=== PATIENT | female | born 1985 | race Caucasian/White ===

== ENCOUNTER 2023-05-26 10:34 | Emergency (ER) | payer OTHER, SELFPAY ==
[2023-05-26 10:43] VITALS: BP 141/86; PULSE 91; RESP 16; TEMP 36.8; O2SAT 97; BMI 35.9
[2023-05-26 10:56] VITALS: BP 141/86; PULSE 92; RESP 18; O2SAT 98
--- NOTE | 2023-05-26 10:59 | ED_ITS ---
HPI - Recheck/Abnormal Lab/Rx <Paige Moss PA-C - Last Filed: 05/26/23 11:59> General Chief Complaint: Recheck/Abnormal Lab/Rx Stated Complaint: heavy period, possible lt leg blood clot Time Seen by Provider: 05/26/23 10:51 Mode of arrival: Family Vehicle History of Present Illness HPI narrative: A 38-year-old woman with a history of factor 5 Leiden, previous DVTs of left lower extremity who presents with concern for some mild dizziness and heavy bleeding associated with mild cramping after her period started yesterday in the setting of beginning rivaroxaban on Saturday, 4 days ago. Patient states that she had been having increasing left calf swelling and some sharp calf pains shooting up her leg so she went in to [facility] in [place] for evaluation of DVT, she brings ultrasound report with her today which shows no evidence of new DVT, she did state that they told her there was some residual old DVT but nothing new. As a precaution she was placed on rivaroxaban she says she is taking 15 mg twice a day. Yesterday she started having her period and had very heavy bleeding with clots she states that she went through about 20 pads over the afternoon and when she tried to use a tampon it immediately filled. She states as of this morning her bleeding has lightened up quite a bit but on the way here she felt a gushing sensation. She has not changed her pad since arrival to the ER. Patient states she has previously been on Eliquis as prophylaxis for a car trip across the [place] and when she was originally diagnosed with DVTs she was on warfarin and therapy was monitored. She states she has never had a problem with heavy periods while being on a blood thinner in the past. When she was on Eliquis it was for short period and she did not have a menstrual period during the time she was on it. Patient states her dizziness is mild and is present even at rest she 1st noticed it last night. Patient states she took a home test before starting the medication which was negative. She endorses that her left calf is chronically larger than her right calf. She is not on control. Her original DVT diagnosis was in 2010, she states she had 1 in her calf and 1 in her upper leg at the same time, this was provoked by being on control it was after this diagnosis that she discovered that she had factor 5 Leiden. She denies any other symptoms or complaints including syncope, persistent left calf pain, nausea, vomiting, diarrhea, abdominal pain, fevers, chills or other. Related Data Allergies Allergy/AdvReac Type Severity Reaction Status Date / Time ampicillin Allergy Verified 05/26/23 10:47 Review of Systems <Paige Moss PA-C - Last Filed: 05/26/23 11:59> Review of Systems Narrative: See HPI Patient History <Paige Moss PA-C - Last Filed: 05/26/23 11:59> Social History Smoking Status: Never smoker Smoking Status: Never smoker alcohol intake frequency: a few times a month Substance Use Type: does not use Exam <Paige Moss PA-C - Last Filed: 05/26/23 11:59> Narrative Exam Narrative: GENERAL: [38] year old patient appears stated age. Overweight patient, in mild distress. HEAD: Atraumatic. Normocephalic. EYES: Pupils equal round and reactive. Extraocular motions intact. No scleral icterus. No injection or drainage. ENT: Nose without bleeding, purulent drainage. Airway patent. NECK: Trachea midline. CARDIOVASCULAR: Regular rate and rhythm without murmurs, gallops, or rubs. RESPIRATORY: Clear to auscultation. Breath sounds equal bilaterally. No wheezes, rales, or rhonchi. GASTROINTESTINAL: Abdomen soft, non-tender, nondistended, no CVA tenderness. EXTREMITIES: Left calf is visibly larger than the right calf, measured at 10 cm below the tibial tuberosity the right calf is 39 cm in circumference and the left calf is 44.5 cm in circumference. There is no tenderness with palpation, movement of the ankle or knee and there is no erythema or heat, pedal pulses dorsalis pedis equal bilaterally, skin color is normal tone for patient consistent in bilateral extremities. No edema or joint tenderness. BACK: Nontender without deformity or crepitance. No flank tenderness. NEURO: AOx3. SKIN: No rash or erythema of visible areas Initial Vital Signs Initial Vital Signs: Vital Signs Temperature 98.3 F 05/26/23 10:43 Pulse Rate 91 H 05/26/23 10:43 Respiratory Rate 16 05/26/23 10:43 Blood Pressure 141/86 H 05/26/23 10:43 Pulse Oximetry 97 05/26/23 10:43 Oxygen Delivery Method Room Air 05/26/23 10:43 <Todd Cagle DO - Last Filed: 05/26/23 12:35> Initial Vital Signs Initial Vital Signs: Vital Signs Temperature 98.3 F 05/26/23 10:43 Pulse Rate 91 H 05/26/23 10:43 Respiratory Rate 16 05/26/23 10:43 Blood Pressure 141/86 H 05/26/23 10:43 Pulse Oximetry 97 05/26/23 10:43 Oxygen Delivery Method Room Air 05/26/23 10:43 Course <Paige Moss PA-C - Last Filed: 05/26/23 11:59> Course Course Narrative: Did discuss this patient's case with attending physician Dr. Cagle including options for reducing dose versus continuing the same dose versus stopping the rivaroxaban given patient's recent symptoms. We are in agreement that given patient's H&H are fine today and she has not had persistent heavy bleeding this morning, given her history and recent symptoms of DVT despite negative ultrasound it does make sense to continue her on the medication and dose that she was initiated on (Rivaroxaban 15mg BID) if she is agreeable with this. 11:25 Did have a long conversation with the patient about options and her history, risk factors and her recent symptoms both of calf pain and swelling and of her heavy menstruall bleeding yesterday. After discussion patient is agreeable to continue with her current medication dose, and monitor for persistent/worsening symptoms. She does feel strongly that she would like to be on a blood thinner given her risk factors and history as well as her recent symptoms. 11:50 Orders Ordered: ED Orders 05/26/23 10:50 Complete Blood Count AUTO DIFF Stat Comprehensive Metabolic Panel Stat HCG Quantitative /Beta subunit Stat PTT Partial Thromboplastin Armando Stat Prothrombin Time INR Stat Type and Screen Stat 05/26/23 11:05 Urinalysis and Microscopic Stat Vital Signs Vital signs: Vital Signs - 8 hr 05/26/23 10:43 05/26/23 10:56 Temperature 98.3 F Pulse Rate 91 H 92 H Respiratory Rate 16 18 Blood Pressure 141/86 H 141/86 H Pulse Oximetry 97 98 Oxygen Delivery Method Room Air <Todd Cagle DO - Last Filed: 05/26/23 12:35> Orders Ordered: ED Orders 05/26/23 10:50 Complete Blood Count AUTO DIFF Stat Comprehensive Metabolic Panel Stat HCG Quantitative /Beta subunit Stat PTT Partial Thromboplastin Armando Stat Prothrombin Time INR Stat Type and Screen Stat 05/26/23 11:05 Urinalysis and Microscopic Stat Vital Signs Vital signs: Vital Signs - 8 hr 05/26/23 10:43 05/26/23 10:56 Temperature 98.3 F Pulse Rate 91 H 92 H Respiratory Rate 16 18 Blood Pressure 141/86 H 141/86 H Pulse Oximetry 97 98 Oxygen Delivery Method Room Air MDM - Recheck/Abnormal Lab/Rx <Paige Moss PA-C - Last Filed: 05/26/23 11:59> Differential Diagnosis Differential diagnosis: Likely other (menorrhagia, on anticoagulation, factor V leiden) Medical Records Attestation: I reviewed the patient's medical records. Lab Data Attestation: I reviewed the patient's lab results. 05/26/23 10:50 05/26/23 10:50 Labs: Lab Results 05/26/23 05/26/23 05/26/23 Range/Units 10:50 10:50 10:50 WBC (4.5-11.0) X10^3/uL RBC (4.0-5.2) X10^6/uL Hgb (12.0-16.0) g/dL Hct (36-46) % MCV (80-100) fL MCH (26-34) PG MCHC (30-36) % RDW (11.6-14.8) % Plt Count (150-400) X10^3/uL Neut % (Auto) (50-75) % Lymph % (Auto) (25-40) % Wharton % (Auto) (3-14) % Eos % (Auto) (2-4) % Baso % (Auto) (0-2) % Neut # (Auto) (2131-7626) /uL Lymph # (Auto) (6751-9927) /uL Wharton # (Auto) (0-900) /uL Eos # (Auto) (0-450) /uL Baso # (Auto) (0-100) /uL PT 18.0 H (10.1-12.7) SECONDS INR 1.6 H (0.9-1.3) APTT 35 (26-36) SECONDS Sodium 138 (137-145) mmol/L Potassium 4.0 (3.4-5.1) mmol/L Chloride 101 (98-107) mmol/L Carbon Dioxide 31 (22-32) mmol/L BUN 12 (7-17) mg/dL Creatinine 0.74 (0.52-1.04) mg/dL Estimated GFR > 60 (>60) mL/min BUN/Creatinine Ratio 16.2 (6-22) Glucose 96 (70-100) mg/dL Calcium 9.2 (8.4-10.2) mg/dL Total Bilirubin 1.2 (0.2-1.3) mg/dL AST 27 (14-36) IU/L ALT 30 (<35) IU/L Alkaline Phosphatase 65 (38-126) U/L Total Protein 7.8 (6.3-8.2) g/dL Albumin 4.5 (3.5-5.0) g/dL Globulin 3.3 (1.7-4.1) g/dL Albumin/Globulin Ratio 1.4 (1.0-2.8) HCG, Quant mIU/mL Urine Color Urine Appearance Urine pH (4.5-8.0) Ur Specific [place] (1.000-1.035) Urine Protein (Negative) Urine Glucose (UA) (Negative) g/dL Urine Ketones (NEGATIVE) Urine Occult Blood (Negative) Urine Nitrate (Negative) Urine Bilirubin (NEGATIVE) Urine Urobilinogen (0.2) E.U./dL Ur Leukocyte Esterase (NEGATIVE) Urine RBC (0-5/HPF) Urine WBC (0-5/HPF) Ur Squamous Epith Cells (0-5/HPF) Urine Bacteria (None) Ur Culture Indicated? Blood Type A Negative Antibody Screen Negative 05/26/23 05/26/23 05/26/23 Range/Units 10:50 10:50 11:05 WBC 5.7 (4.5-11.0) X10^3/uL RBC 4.45 (4.0-5.2) X10^6/uL Hgb 14.1 (12.0-16.0) g/dL Hct 40.8 (36-46) % MCV 91.8 (80-100) fL MCH 31.8 (26-34) PG MCHC 34.6 (30-36) % RDW 13.2 (11.6-14.8) % Plt Count 226 (150-400) X10^3/uL Neut % (Auto) 52.4 (50-75) % Lymph % (Auto) 36.8 (25-40) % Wharton % (Auto) 9.4 (3-14) % Eos % (Auto) 1.1 L (2-4) % Baso % (Auto) 0.3 (0-2) % Neut # (Auto) 3000 (7277-7733) /uL Lymph # (Auto) 2100 (2646-4096) /uL Wharton # (Auto) 500 (0-900) /uL Eos # (Auto) 100 (0-450) /uL Baso # (Auto) 0 (0-100) /uL PT (10.1-12.7) SECONDS INR (0.9-1.3) APTT (26-36) SECONDS Sodium (137-145) mmol/L Potassium (3.4-5.1) mmol/L Chloride (98-107) mmol/L Carbon Dioxide (22-32) mmol/L BUN (7-17) mg/dL Creatinine (0.52-1.04) mg/dL Estimated GFR (>60) mL/min BUN/Creatinine Ratio (6-22) Glucose (70-100) mg/dL Calcium (8.4-10.2) mg/dL Total Bilirubin (0.2-1.3) mg/dL AST (14-36) IU/L ALT (<35) IU/L Alkaline Phosphatase (38-126) U/L Total Protein (6.3-8.2) g/dL Albumin (3.5-5.0) g/dL Globulin (1.7-4.1) g/dL Albumin/Globulin Ratio (1.0-2.8) HCG, Quant < 2.4 mIU/mL Urine Color Yellow Urine Appearance Clear Urine pH 7.0 (4.5-8.0) Ur Specific [place] 1.010 (1.000-1.035) Urine Protein Negative (Negative) Urine Glucose (UA) Negative (Negative) g/dL Urine Ketones Negative (NEGATIVE) Urine Occult Blood 2+ H (Negative) Urine Nitrate Negative (Negative) Urine Bilirubin Negative (NEGATIVE) Urine Urobilinogen 0.2 (0.2) E.U./dL Ur Leukocyte Esterase Negative (NEGATIVE) Urine RBC 1-5/hpf (0-5/HPF) Urine WBC 0-1/hpf (0-5/HPF) Ur Squamous Epith Cells 1-5 /hpf (0-5/HPF) Urine Bacteria Few (2-10) H (None) Ur Culture Indicated? Cult not indicated Blood Type Antibody Screen Point of Care Testing Test Results Negative Urine Dip Bedside Urine Glucose Negative Bedside Urine Bilirubin - Negative Bedside Urine Ketone - Negative Urine Specific [place] 1.010 Bedside Urine Occult Blood +++ Bedside Urine pH 7.0 Bedside Urine Protein - Negative Bedside Urine Urobilinogen - Negative Bedside Urine Nitrite - Negative Bedside Urine Leukocytes - Negative Esterase MDM Narrative Medical decision making narrative: Is a slightly anxious appearing 38-year-old woman with a history of factor 5 Leiden than previous left lower extremity DVTs in 2010 with recent DVT symptoms and recent negative DVT ultrasound who presents with concern for heavy bleeding yesterday when her period began on time in the setting of starting rivaroxaban 3 days ago. Patient's vitals are not suggestive of hypovolemia due to blood loss, she is generally well-appearing the slightly anxious and worried, her labs returned unremarkable, she has H&H in the normal range hemoglobin 14.1 hematocrit 39.8. HCG is negative. She does have a INR of 1.6 and a PT of 18 consistent with being on rivaroxaban. Patient did also take aspirin until she began the rivaroxaban 3 days ago. Notably patient has not had persistent heavy menstrual bleeding this morning or last night that has been but did report s ignificant heavy bleeding yesterday. After discussion with attending physician repeat DVT ultrasound was not obtained as patient is already on anticoagulation had a negative DVT ultrasound 4 days ago and has not had persistent or worsening leg pain symptoms. Patient also has no exam findings or history suggestive of PE. Also after discussion with attending physician and involvement of the patie nt with shared decision-making plan to leave the patient on the rivaroxaban though she is on currently at 15 mg twice a day, she will follow-up with her primary care provider and have a discussion about when to drop this down to a lower dose and whether or not to consider chronic prophylactic therapy. Patient is counseled regarding return precautions, monitoring for new or worsening symptoms and understands when to call 911 or present to the emergency department. Return precautions provided, follow-up plan discussed, questions answered. <Todd Cagle, DO - Last Filed: 05/26/23 12:35> Lab Data Labs: Lab Results 05/26/23 05/26/23 05/26/23 Range/Units 10:50 10:50 10:50 WBC (4.5-11.0) X10^3/uL RBC (4.0-5.2) X10^6/uL Hgb (12.0-16.0) g/dL Hct (36-46) % MCV (80-100) fL MCH (26-34) PG MCHC (30-36) % RDW (11.6-14.8) % Plt Count (150-400) X10^3/uL Neut % (Auto) (50-75) % Lymph % (Auto) (25-40) % Wharton % (Auto) (3-14) % Eos % (Auto) (2-4) % Baso % (Auto) (0-2) % Neut # (Auto) (3623-8304) /uL Lymph # (Auto) (0119-6168) /uL Wharton # (Auto) (0-900) /uL Eos # (Auto) (0-450) /uL Baso # (Auto) (0-100) /uL PT 18.0 H (10.1-12.7) SECONDS INR 1.6 H (0.9-1.3) APTT 35 (26-36) SECONDS Sodium 138 (137-145) mmol/L Potassium 4.0 (3.4-5.1) mmol/L Chloride 101 (98-107) mmol/L Carbon Dioxide 31 (22-32) mmol/L BUN 12 (7-17) mg/dL Creatinine 0.74 (0.52-1.04) mg/dL Estimated GFR > 60 (>60) mL/min BUN/Creatinine Ratio 16.2 (6-22) Glucose 96 (70-100) mg/dL Calcium 9.2 (8.4-10.2) mg/dL Total Bilirubin 1.2 (0.2-1.3) mg/dL AST 27 (14-36) IU/L ALT 30 (<35) IU/L Alkaline Phosphatase 65 (38-126) U/L Total Protein 7.8 (6.3-8.2) g/dL Albumin 4.5 (3.5-5.0) g/dL Globulin 3.3 (1.7-4.1) g/dL Albumin/Globulin Ratio 1.4 (1.0-2.8) HCG, Quant mIU/mL Urine Color Urine Appearance Urine pH (4.5-8.0) Ur Specific [place] (1.000-1.035) Urine Protein (Negative) Urine Glucose (UA) (Negative) g/dL Urine Ketones (NEGATIVE) Urine Occult Blood (Negative) Urine Nitrate (Negative) Urine Bilirubin (NEGATIVE) Urine Urobilinogen (0.2) E.U./dL Ur Leukocyte Esterase (NEGATIVE) Urine RBC (0-5/HPF) Urine WBC (0-5/HPF) Ur Squamous Epith Cells (0-5/HPF) Urine Bacteria (None) Ur Culture Indicated? Blood Type A Negative Antibody Screen Negative 05/26/23 05/26/23 05/26/23 Range/Units 10:50 10:50 11:05 WBC 5.7 (4.5-11.0) X10^3/uL RBC 4.45 (4.0-5.2) X10^6/uL Hgb 14.1 (12.0-16.0) g/dL Hct 40.8 (36-46) % MCV 91.8 (80-100) fL MCH 31.8 (26-34) PG MCHC 34.6 (30-36) % RDW 13.2 (11.6-14.8) % Plt Count 226 (150-400) X10^3/uL Neut % (Auto) 52.4 (50-75) % Lymph % (Auto) 36.8 (25-40) % Wharton % (Auto) 9.4 (3-14) % Eos % (Auto) 1.1 L (2-4) % Baso % (Auto) 0.3 (0-2) % Neut # (Auto) 3000 (8711-3062) /uL Lymph # (Auto) 2100 (4620-5800) /uL [place]arton # (Auto) 500 (0-900) /uL Eos # (Auto) 100 (0-450) /uL Baso # (Auto) 0 (0-100) /uL PT (10.1-12.7) SECONDS INR (0.9-1.3) APTT (26-36) SECONDS Sodium (137-145) mmol/L Potassium (3.4-5.1) mmol/L Chloride (98-107) mmol/L Carbon Dioxide (22-32) mmol/L BUN (7-17) mg/dL Creatinine (0.52-1.04) mg/dL Estimated GFR (>60) mL/min BUN/Creatinine Ratio (6-22) Glucose (70-100) mg/dL Calcium (8.4-10.2) mg/dL Total Bilirubin (0.2-1.3) mg/dL AST (14-36) IU/L ALT (<35) IU/L Alkaline Phosphatase (38-126) U/L Total Protein (6.3-8.2) g/dL Albumin (3.5-5.0) g/dL Globulin (1.7-4.1) g/dL Albumin/Globulin Ratio (1.0-2.8) HCG, Quant < 2.4 mIU/mL Urine Color Yellow Urine Appearance Clear Urine pH 7.0 (4.5-8.0) Ur Specific [place] 1.010 (1.000-1.035) Urine Protein Negative (Negative) Urine Glucose (UA) Negative (Negative) g/dL Urine Ketones Negative (NEGATIVE) Urine Occult Blood 2+ H (Negative) Urine Nitrate Negative (Negative) Urine Bilirubin Negative (NEGATIVE) Urine Urobilinogen 0.2 (0.2) E.U./dL Ur Leukocyte Esterase Negative (NEGATIVE) Urine RBC 1-5/hpf (0-5/HPF) Urine WBC 0-1/hpf (0-5/HPF) Ur Squamous Epith Cells 1-5 /hpf (0-5/HPF) Urine Bacteria Few (2-10) H (None) Ur Culture Indicated? Cult not indicated Blood Type Antibody Screen Point of Care Testing Test Results Negative Urine Dip Bedside Urine Glucose Negative Bedside Urine Bilirubin - Negative Bedside Urine Ketone - Negative Urine Specific [place] 1.010 Bedside Urine Occult Blood +++ Bedside Urine pH 7.0 Bedside Urine Protein - Negative Bedside Urine Urobilinogen - Negative Bedside Urine Nitrite - Negative Bedside Urine Leukocytes - Negative Esterase Discharge Plan Departure Patient Disposition: Home Clinical Impression: Menorrhagia, Anticoagulants causing adverse effect in therapeutic use, Swelling of calf Activity Restrictions/Additional Instructions: *You have been diagnosed with heavy menstrual bleeding *What to do: *Please continue to take your regular medications as directed. [ ] New medication prescriptions sent to your pharmacy: [ ] [ ] New medication written as a paper prescription [ X] No new medications given *Please follow up with your primary care provider in 2-3 days, call for an appointment. Let them know you were seen in the Emergency Department and that we ask that you be seen in follow up. We will electronically transmit a record of today's note if your PCP is in our system. As we discussed today based on your labs and history being on anticoagulation therapy is appropriate, after discussion with you you were agreeable to staying on the current dose of rivaroxaban 15 mg twice a day. I would like you to follow-up closely with your primary care provider and you can discuss with them whether or not you were appropriate candidate for being on chronic anticoagulation therapy and or when to reduce your dose down from 15 mg twice a day. We did not repeat a DVT ultrasound today as he just had this done 4 days ago and this was negative. Please be sure to call 911 or seek re-evaluation/present to the emergency department if you do have severe heavy bleeding or symptoms of blood loss such as dizziness lightheadedness or shortness of breath over the next few days, I am hopeful your through the worst of it in that he will not have persistent heavy bleeding over the next few days. *If you do not have a primary care provider please contact the [facility] Resource line at [phone]. They will ask some questions about your medical history and help get you set up with a doctor in the community. *Return to Emergency Department if you should have any new, worsening or concerning symptoms, such as [fever greater than 101 F, shaking chills, worsening pain, persistent vomiting or other bothersome symptoms] Stand Alone Forms: Patient Portal/API <Todd Cagle, DO - Last Filed: 05/26/23 12:35> Cosign ED Attending Cosgisselleature Attestation: Dr Cagle Co-Sign Statement: I was available for consultation during this pa napoleon's emergency department visit. This chart is signed by myself for administrative purposes only. I did not have direct contact with this patient during this visit. They were seen independently by the APC.
[2023-05-26 11:07] LABS: Add Manual Diff / Slide Review NO; Basophils Absolute Auto 0 /uL (0-100); Basophils Percent Auto 0.3 % (0-2); Eosinophils Absolute Auto 100 /uL (0-450); Eosinophils Percent Auto 1.1 % (2-4); Hematocrit 40.8 % (36-46); Hemoglobin 14.1 g/dL (12.0-16.0); Lymphocytes Absolute Auto 2100 /uL (1100-4500); Lymphocytes Percent Auto 36.8 % (25-40); Mean Corpuscular HGB Conc 34.6 % (30-36); Mean Corpuscular Hemoglobin 31.8 PG (26-34); Mean Corpuscular Volume 91.8 fL (80-100); Monocytes Absolute Auto 500 /uL (0-900); Monocytes Percent Auto 9.4 % (3-14); Neutrophils Absolute Auto 3000 /uL (1500-7000); Neutrophils Percent Auto 52.4 % (50-75); Platelet Count 226 X10^3/uL (150-400); Red Blood Cell Count 4.45 X10^6/uL (4.0-5.2); Red Cell Distribution Width 13.2 % (11.6-14.8); White Blood Cell Count 5.7 X10^3/uL (4.5-11.0)
[2023-05-26 11:09] LABS: INR 1.6 (0.9-1.3)
[2023-05-26 11:11] LABS: PTT Partial Thromboplastin Tim 35 SECONDS (26-36)
[2023-05-26 11:12] LABS: Alanine Aminotransferase 30 IU/L (<35); Albumin 4.5 g/dL (3.5-5.0); Albumin Globulin Ratio 1.4 (1.0-2.8); Alkaline Phosphatase 65 U/L (38-126); Aspartate Aminotransferase 27 IU/L (14-36); BUN Creatinine Ratio 16.2 (6-22); Bilirubin Total 1.2 mg/dL (0.2-1.3); Blood Urea Nitrogen 12 mg/dL (7-17); Calcium 9.2 mg/dL (8.4-10.2); Carbon Dioxide 31 mmol/L (22-32); Chloride 101 mmol/L (98-107); Estimated Glomerular Filt Rate > 60 mL/min (>60); Globulin 3.3 g/dL (1.7-4.1); Glucose 96 mg/dL (70-100); HEMOLYSIS < 15 (0-50); Sodium 138 mmol/L (137-145); Total Protein 7.8 g/dL (6.3-8.2)
[2023-05-26 11:39] LABS: HCG Quantitative /Beta subunit < 2.4 mIU/mL
[2023-05-26 11:51] LABS: Appearance Urine UA CLEAR; Bilirubin Urine UA NEGATIVE (NEGATIVE); Color Urine UA YELLOW; Glucose Urine UA NEGATIVE (Negative); Ketones Urine UA NEGATIVE (NEGATIVE); Leukocyte Esterase Urine UA NEGATIVE (NEGATIVE); Nitrite Urine UA NEGATIVE (Negative); Occult Blood Urine UA 2+ (Negative); Protein Urine UA NEGATIVE (Negative); Urobilinogen Urine UA 0.2 E.U./dL (0.2)
[2023-05-26 12:02] LABS: Bacteria Urine Few (2-10); Culture Indicated Urine Cult Not Indicated; RBC Urine 1-5/HPF (0-5/HPF); Squamous Epithelial Cell Urine 1-5 /HPF (0-5/HPF); WBC Urine 0-1/HPF (0-5/HPF)
== END 2023-05-26 12:18 | disposition home or self-care (01) ==
PROVIDERS: Emergency Provider Student in an Organized Health Care Education/Training Program
DX: N92.0 Excessive and frequent menstruation with regular cycle (principal); T45.515A Adverse effect of anticoagulants, initial encounter; M79.89 Other specified soft tissue disorders; R42 Dizziness and giddiness; Z79.01 Long term (current) use of anticoagulants
CPT/HCPCS: 36415; 80053; 81001; 81003; 81025; 84702; 85025; 85610; 85730; 86850; 86900; 86901; 99283

== ENCOUNTER 2023-10-21 17:30 | Emergency (ER) | payer OTHER, SELFPAY ==
--- NOTE | 2023-10-21 17:41 | DI.US.S_ITS ---
PROCEDURE: US OB <= 14 WEEKS FETUS INDICATIONS: abd pain and OUTSIDE/PRIOR DATING DATA: Last menstrual period (LMP): 09/08/2023. LMP-based estimated date of delivery (PRISCILLA): 06/14/2024. First dating scan (date and location): Today. Estimated date of delivery (PRISCILLA) from first dating scan: 06/14/2024. TECHNIQUE: Real-time scanning was performed of the fetus and maternal pelvic organs, with image documentation. Endovaginal scanning was also performed to better visualize the fetus and maternal ovaries. COMPARISON: None. FINDINGS: Heart rate is 147 beats per minute. Cervical length is 3.9 cm. [place] month length is 0.46 cm corresponding ultrasound age of 6 weeks and 1 day. Small left ovarian cysts are partially seen. Right ovary within normal limits. Color and spectral flows are present. Suspected lower uterine segment posterior fibroid measures up to 3.1 x 2.5 cm. A left fibroid measures up to 3 x 2.8 cm. IMPRESSION: Living intrauterine gestation at an ultrasound age of 6 weeks and 1 day. Fibroid uterus. Follicles/cysts in the left ovary. Color spectral flows are present. Dictated by: Zak Ramirez M.D. on 10/21/2023 at 19:23 Approved by: Zak Ramirez M.D. on 10/21/2023 at 19:26
[2023-10-21 17:47] VITALS: BP 147/75; PULSE 102; RESP 17; TEMP 36.6; O2SAT 100; BMI 36.8
--- NOTE | 2023-10-21 17:59 | DI.US.S_ITS ---
PROCEDURE: US ABDOMEN LIMITED INDICATIONS: pain, check gall bladder and appendix TECHNIQUE: Real-time focused scanning was performed of the abdomen, with image documentation. COMPARISON: None. FINDINGS: Limited evaluation due to body habitus. Intracostal views were obtained. The liver measures 14 cm. Echogenicity is increased. Patient is not NPO. Gallbladder is contracted. No focal tenderness. Biliary tree is nondilated with CBD measuring 4 mm. Overall echogenic appearance of the pancreas. Right kidney is not well seen, suspected simple cyst measuring up to 6.8 cm is present. IMPRESSION: Limited sonographic windows. Patient is not NPO. Gallbladder is contracted. No focal tenderness. Increased hepatic echogenicity, nonspecific, most commonly steatosis. No biliary ductal dilation by ultrasound. Suspected right renal cyst is partially seen. Dictated by: Zak Ramirez M.D. on 10/21/2023 at 19:21 Approved by: Zak Ramirez M.D. on 10/21/2023 at 19:23
[2023-10-21 18:11] LABS: Add Manual Diff / Slide Review NO; Basophils Absolute Auto 0 /uL (0-100); Basophils Percent Auto 0.4 % (0-2); Eosinophils Absolute Auto 0 /uL (0-450); Eosinophils Percent Auto 0.6 % (2-4); Hematocrit 38.8 % (36-46); Hemoglobin 13.5 g/dL (12.0-16.0); Lymphocytes Absolute Auto 2400 /uL (1100-4500); Lymphocytes Percent Auto 38.4 % (25-40); Mean Corpuscular HGB Conc 34.7 % (30-36); Mean Corpuscular Hemoglobin 31.4 PG (26-34); Mean Corpuscular Volume 90.5 fL (80-100); Monocytes Absolute Auto 800 /uL (0-900); Monocytes Percent Auto 12.6 % (3-14); Neutrophils Absolute Auto 3000 /uL (1500-7000); Platelet Count 198 X10^3/uL (150-400); Red Blood Cell Count 4.29 X10^6/uL (4.0-5.2); Red Cell Distribution Width 13.5 % (11.6-14.8); White Blood Cell Count 6.2 X10^3/uL (4.5-11.0)
[2023-10-21 18:19] LABS: Alanine Aminotransferase 150 IU/L (<35); Albumin 4.4 g/dL (3.5-5.0); Albumin Globulin Ratio 1.3 (1.0-2.8); Alkaline Phosphatase 56 U/L (38-126); Aspartate Aminotransferase 128 IU/L (14-36); BUN Creatinine Ratio 25.4 (6-22); Bilirubin Total 0.7 mg/dL (0.2-1.3); Blood Urea Nitrogen 18 mg/dL (7-17); Calcium 10.3 mg/dL (8.4-10.2); Carbon Dioxide 28 mmol/L (22-32); Chloride 99 mmol/L (98-107); Estimated Glomerular Filt Rate > 60 mL/min (>60); Globulin 3.5 g/dL (1.7-4.1); Glucose 87 mg/dL (70-100); HEMOLYSIS 25 (0-50); Lipase 139 U/L (23-300); Potassium 3.7 mmol/L (3.4-5.1); Sodium 135 mmol/L (137-145); Total Protein 7.9 g/dL (6.3-8.2)
--- NOTE | 2023-10-21 19:50 | ED.GENADULT ---
HPI - General Adult General Chief complaint: Abdominal Pain Stated complaint: wks unknown/abd pain Time Seen by Provider: 10/21/23 18:12 Source: patient Mode of arrival: Ambulatory History of Present Illness HPI narrative: 38-year-old woman, , with a history of factor 5 Leiden deficiency had been on Xarelto when she discovered that she was and switch to Lovenox. This is an unexpected but welcome . She is noticed over the last couple of days some mild cramping sensation in the right pelvic area and comes in for further evaluation. She is not yet established care with an OBGYN. She notes mild constipation developing but no dysuria, flank pain, fevers, nausea, vomiting. Related Data Home Medications Medication Instructions Recorded Confirmed enoxaparin 100 mg/mL subcutaneous 100 mg SUBCUT BID 10/21/23 10/21/23 syringe Allergies Allergy/AdvReac Type Severity Reaction Status Date / Time ampicillin Allergy Verified 10/21/23 17:51 Review of Systems Review of Systems Narrative: Pertinent positive and negative findings as per HPI Patient History Medical History Psoriasis Obesity LTBI (latent tuberculosis infection) Hyperhidrosis Hx of venous thromboembolic disease Factor V deficiency Edema of left lower leg Eczema Dysuria Congenital deformity of foot Social History Smoking Status: Never smoker Smoking Status: Never smoker alcohol intake frequency: other Substance Use Type: does not use Exam Initial Vital Signs Initial Vital Signs: Vital Signs Temperature 98 F 10/21/23 17:47 Pulse Rate 102 H 10/21/23 17:47 Respiratory Rate 17 10/21/23 17:47 Blood Pressure 147/75 H 10/21/23 17:47 Pulse Oximetry 100 10/21/23 17:47 Oxygen Delivery Method Room Air 10/21/23 17:47 General: Healthy appearingHEENT: Moist mucous membranes, normal sclera with reactive pupils, Neck: No JVD, supple Respiratory: Lungs are clear to auscultation, no wheezing no rales no rhonchi. Full and symmetrical air movement Cardiac: Regular rate and rhythm no murmurs no bruits Abdomen: Soft, nontender, a some mild tenderness the right suprapubic area without rebound or guarding good bowel tones, no flank pain Skin: Warm and dry, no rashes Neurologic: Grossly neurologically intact with no obvious asymmetries or abnormalities Extremities: No trauma, well perfused Psych: Cooperative, appropriate insight and affect Course Orders Ordered: ED Orders 10/21/23 17:37 UA dip [Urinalysis Screen (Dip Only)] Stat 10/21/23 17:41 US OB <= 14 weeks fetus Stat 10/21/23 17:50 ABO RH Type Stat Beta HCG, Quant [HCG Quantitative /Beta subunit] Stat Complete Blood Count AUTO DIFF Stat Comprehensive Metabolic Panel Stat Lipase Stat 10/21/23 17:59 US abdomen limited Stat Ondansetron HCl (Ondansetron 4 Mg Odt) 4 mg PO NOW PRN PRN Reason: Nausea And Vomiting Ondansetron HCl (Ondansetron 4 Mg/2 Ml Inj) 4 mg IV NOW PRN PRN Reason: Nausea And Vomiting Vital Signs Vital signs: Vital Signs - 8 hr 10/21/23 17:47 Temperature 98 F Pulse Rate 102 H Respiratory Rate 17 Blood Pressure 147/75 H Pulse Oximetry 100 Oxygen Delivery Method Room Air Medical Decision Making Lab Data 10/21/23 17:50 10/21/23 17:50 Labs: Lab Results 10/21/23 Range/Units 17:50 WBC 6.2 (4.5-11.0) X10^3/uL RBC 4.29 (4.0-5.2) X10^6/uL Hgb 13.5 (12.0-16.0) g/dL Hct 38.8 (36-46) % MCV 90.5 (80-100) fL MCH 31.4 (26-34) PG MCHC 34.7 (30-36) % RDW 13.5 (11.6-14.8) % Plt Count 198 (150-400) X10^3/uL Neut % (Auto) 48.0 L (50-75) % Lymph % (Auto) 38.4 (25-40) % Andrews % (Auto) 12.6 (3-14) % Eos % (Auto) 0.6 L (2-4) % Baso % (Auto) 0.4 (0-2) % Neut # (Auto) 3000 (5289-3406) /uL Lymph # (Auto) 2400 (6853-6136) /uL Andrews # (Auto) 800 (0-900) /uL Eos # (Auto) 0 (0-450) /uL Baso # (Auto) 0 (0-100) /uL Sodium 135 L (137-145) mmol/L Potassium 3.7 (3.4-5.1) mmol/L Chloride 99 (98-107) mmol/L Carbon Dioxide 28 (22-32) mmol/L BUN 18 H (7-17) mg/dL Creatinine 0.71 (0.52-1.04) mg/dL Estimated GFR > 60 (>60) mL/min BUN/Creatinine Ratio 25.4 H (6-22) Glucose 87 (70-100) mg/dL Calcium 10.3 H (8.4-10.2) mg/dL Total Bilirubin 0.7 (0.2-1.3) mg/dL AST 128 H (14-36) IU/L ALT 150 H (<35) IU/L Alkaline Phosphatase 56 (38-126) U/L Total Protein 7.9 (6.3-8.2) g/dL Albumin 4.4 (3.5-5.0) g/dL Globulin 3.5 (1.7-4.1) g/dL Albumin/Globulin Ratio 1.3 (1.0-2.8) Lipase 139 (23-300) U/L HCG, Quant 14876 mIU/mL Blood Type A Negative Point of Care Testing Test Results Positive Point of care testing: Point of Care Testing Test Results Positive MDM Narrative Medical decision making narrative: CC: Pelvic cramping I suspect a Complicating co-morbidities: Factor 5 Leiden deficiency Data collected from: patient, Social determinants of health that may influence the patients condition: Patient recently from her because he did not want to have children Differential considered: Ectopic , ovarian torsion, appendicitis, pelvic inflammatory disease, constipation Exam documented above, pertinent findings include: Completely benign exam with minimal tenderness at most to deep palpation right suprapubic area. Lab Test results independently reviewed as above. Pertinent findings: Labs show normal CBC Chemistries demonstrate slightly elevated AST and ALT, normal creatinine. HCG is appropriate at over 76,000 Urine is unremarkable Imaging studies independently reviewed: ultrasound shows a fibroid uterus with 2 fibroids both around 3 cm. A intrauterine fetus at 6 weeks 1 day giving an EDC of June 14. Normal blood flow to both ovaries demonstrating an absence of ovarian torsion Complete abdominal ultrasound shows gallbladder, pancreas incidental cyst in the right kidney Discussion: 38-year-old at 6 weeks with minor low pelvic pain. She notes that she has not pooped in a day or so and she typically has a bowel movement twice a day. We talked about constipation and early . No evidence of vaginal infection, urinary tract infection, pelvic inflammatory disease, ectopic , ovarian torsion, appendicitis or alternate diagnosis that would require further workup imaging or hospitalization. She does have a history of factor 5 Leiden deficiency and currently is on appropriate doses of enoxaparin and planning to continue these. She is waiting for her [facility] referral to process to establish with an OBGYN implants to come to [facility]. She is given information on early , informed that her due date will be June 14, discussion regarding preventing constipation and . Questions are answered she is safe for discharge MIPS #[id number]: Ultrasound for Patients with Abdominal Pain [X] The patient is and presents with abdominal pain or vaginal bleeding. A trans-abdominal or trans-vaginal ultrasound was performed and the location is documented. [SATISFIES MIPS PERFORMANCE] Discharge Plan Departure Patient Disposition: Home Clinical Impression: Elevated transaminase level Qualifiers: Weeks of gestation: less than 8 weeks Qualified Code(s): Z3A.01 - Less than 8 weeks gestation of Ovarian cyst Qualifiers: Laterality: right Qualified Code(s): N83.201 - Unspecified ovarian cyst, right side Instructions: DI for Abdominal Pain -- Early Activity Restrictions/Additional Instructions: Thank you for coming in today. Congratulations on your ! You have a 6 week that seems to be growing perfectly. Based on today's ultrasound you are due date is June 14, 2024. The ultrasound did not show any problems with your gallbladder, your kidneys or your appendix. You do have a small cyst in the left ovary but no significant abnormal findings on the right ovary. Both ovaries have good blood flow to them and look healthy. Constipation is very common in early . I would recommend increasing fiber and if this isn't enough than adding a capful of MiraLax daily. MiraLax is safe with as none of it is absorbed, it simply pulse water into your colon to make your poop softer. Please do call our OBGYN Clinic at [phone] to schedule a new OB appointment and please do continue your Lovenox injections. If you find that you are getting worse or develop any new symptoms, please feel free to return to the emergency department for further evaluation. Prescriptions: No Action enoxaparin 100 mg/mL syringe 100 mg SUBCUT BID Patient Comments: [NO ORIGINAL SIG] Referrals: ProviderZayda [Primary Care Provider] - Stand Alone Forms: Patient Portal/API
[2023-10-21 19:52] LABS: Appearance Urine UA CLEAR; Bilirubin Urine UA NEGATIVE (NEGATIVE); Color Urine UA YELLOW; Glucose Urine UA NEGATIVE (Negative); Ketones Urine UA NEGATIVE (NEGATIVE); Leukocyte Esterase Urine UA NEGATIVE (NEGATIVE); Nitrite Urine UA NEGATIVE (Negative); Occult Blood Urine UA NEGATIVE (Negative); Protein Urine UA NEGATIVE (Negative); Urobilinogen Urine UA 0.2 E.U./dL (0.2)
[2023-10-21 19:54] LABS: pH Urine UA 5.5 (4.5-8.0)
[2023-10-21 20:16] VITALS: BP 128/64; PULSE 78; RESP 16; O2SAT 98
== END 2023-10-21 20:16 | disposition home or self-care (01) ==
PROVIDERS: Emergency Medicine; Emergency Provider Emergency Medicine
DX: O34.81 Maternal care for other abnormalities of pelvic organs, first trimester (principal); N83.201 Unspecified ovarian cyst, right side; O26.891 Other specified pregnancy related conditions, first trimester; R74.01 Elevation of levels of liver transaminase levels; Z3A.08 8 weeks gestation of pregnancy; Z79.01 Long term (current) use of anticoagulants
CPT/HCPCS: 36415; 76705; 76801; 76817; 80053; 81003; 81025; 83690; 84702; 85025; 86900; 86901; 93976; 99283

== ENCOUNTER → 2023-11-01 11:31 | Outpatient (CLI) | payer OTHER, SELFPAY ==
[2023-11-01 15:26] LABS: Urine N gonorrhoeae NOT DETECTED
[2023-11-01 15:32] LABS: Urine Chlamydia NOT DETECTED
== END ==
PROVIDERS: Visit Provider Obstetrics & Gynecology
DX: Z34.01 Encounter for supervision of normal first pregnancy, first trimester (principal); Z3A.01 Less than 8 weeks gestation of pregnancy
CPT/HCPCS: 87491; 87591

== ENCOUNTER → 2023-11-14 16:47 | Outpatient (CLI) | payer OTHER, SELFPAY ==
[2023-11-14 17:30] LABS: Add Manual Diff / Slide Review NO; Basophils Absolute Auto 0 /uL (0-100); Basophils Percent Auto 0.4 % (0-2); Eosinophils Absolute Auto 100 /uL (0-450); Eosinophils Percent Auto 0.7 % (2-4); Hematocrit 37.1 % (36-46); Hemoglobin 13.1 g/dL (12.0-16.0); Lymphocytes Absolute Auto 2600 /uL (1100-4500); Lymphocytes Percent Auto 33.2 % (25-40); Mean Corpuscular HGB Conc 35.4 % (30-36); Mean Corpuscular Hemoglobin 31.9 PG (26-34); Mean Corpuscular Volume 90.2 fL (80-100); Monocytes Absolute Auto 600 /uL (0-900); Monocytes Percent Auto 7.6 % (3-14); Neutrophils Absolute Auto 4600 /uL (1500-7000); Neutrophils Percent Auto 58.1 % (50-75); Platelet Count 218 X10^3/uL (150-400); Red Blood Cell Count 4.11 X10^6/uL (4.0-5.2); Red Cell Distribution Width 13.2 % (11.6-14.8); White Blood Cell Count 7.9 X10^3/uL (4.5-11.0)
[2023-11-14 18:41] LABS: Alanine Aminotransferase 33 IU/L (<35); Albumin 4.1 g/dL (3.5-5.0); Albumin Globulin Ratio 1.3 (1.0-2.8); Alkaline Phosphatase 56 U/L (38-126); Aspartate Aminotransferase 25 IU/L (14-36); BUN Creatinine Ratio 27.5 (6-22); Bilirubin Total 0.7 mg/dL (0.2-1.3); Blood Urea Nitrogen 14 mg/dL (7-17); Calcium 9.8 mg/dL (8.4-10.2); Carbon Dioxide 21 mmol/L (22-32); Chloride 102 mmol/L (98-107); Estimated Glomerular Filt Rate > 60 mL/min (>60); Globulin 3.2 g/dL (1.7-4.1); Glucose 103 mg/dL (70-100); HEMOLYSIS 17 (0-50); Potassium 3.8 mmol/L (3.4-5.1); Sodium 133 mmol/L (137-145); Total Protein 7.3 g/dL (6.3-8.2)
[2023-11-14 19:08] LABS: Hepatitis B Surface Antigen NEGATIVE s/c (NEGATIVE); Rubella Antibody IgG 52.9 IU/mL (>15)
[2023-11-14 19:19] LABS: HIV 1 & 2 Ab/Ag 4th Gen Combo NEGATIVE (NEGATIVE); Hep C Virus Ab w/Reflex Quant NEGATIVE s/c (NEGATIVE)
[2023-11-15 09:14] LABS: Varicella IgG Antibody <135 index (Immune >165)
[2023-11-16 04:19] LABS: RPR Screen Non Reactive (Non Reactive)
== END ==
PROVIDERS: Referring Provider Obstetrics & Gynecology; Visit Provider Obstetrics & Gynecology
DX: Z34.00 Encounter for supervision of normal first pregnancy, unspecified trimester (principal); R74.01 Elevation of levels of liver transaminase levels; Z3A.10 10 weeks gestation of pregnancy
CPT/HCPCS: 36415; 80053; 80055; 86787; 86803; 86850; 86900; 86901; 87389

== ENCOUNTER → 2023-11-26 15:53 | Outpatient (CLI) | payer OTHER, SELFPAY ==
[2023-11-28 11:35] LABS: Candida species Negative (Negative); Gardnerella vaginalis Positive (Negative); Trichomoas vaginalis Negative (Negative)
== END ==
PROVIDERS: Visit Provider Obstetrics & Gynecology
DX: N89.8 Other specified noninflammatory disorders of vagina (principal)
CPT/HCPCS: 87480; 87510; 87660

== ENCOUNTER → 2024-01-20 12:09 | Outpatient (CLI) | payer OTHER, SELFPAY ==
--- NOTE | 2024-01-20 12:10 | DI.US.S_ITS ---
PROCEDURE: US OB >= 14 WEEKS FETUS INDICATIONS: 20 Week Anatomy Scan OUTSIDE/PRIOR DATING DATA: Last menstrual period (LMP): 09/08/2023. LMP-based estimated date of delivery (PRISCILLA): 06/14/2024. First dating scan (date and location): 10/21/2023. Estimated date of delivery (PRISCILLA) from first dating scan: 06/14/2023. The calculations are made using the LMP PRISCILLA of 06/14/2023. TECHNIQUE: Real-time scanning was performed of the fetus, with image documentation and biometric measurements. COMPARISON: 10/21/2023. FINDINGS: General: A single living intrauterine gestation is present. Presentation: Breech. Placenta: Placental position is posterior , without previa. Amniotic fluid index: 20.2 cm, normal range is 5-24 cm. Single deepest vertical pocket is 6.1 cm. heart rate: 155 beats per minute. Maternal cervical canal: 4.3 cm long. Normal lower limit is 2.5 cm. Multiple uterine fibroids are visualized. biometrics: Biparietal diameter: 4.7 Head circumference: 17.2 Abdominal circumference: 16.2 Femur length: 3.3 Clinically estimated gestational age: 19 weeks, 1 day Composite gestational age from present scan: 20 weeks, 3 days Estimated weight: 376 grams Anatomic survey: Neuro: Ventricles are non-dilated at less than 10 mm. Cisterna magna is normal at 3-11 mm. Cerebellum is normal in size and morphology. Nuchal skin fold: Normal at less than 6 mm between 14-21 weeks gestational age. Face: Not well seen Spine: No evidence for spina bifida. Heart: 4-chambered heart is present, with normal left ventricular outflow tract. Right ventricular outflow tract is not well visualized. Diaphragm: Diaphragm is intact. Stomach: Left-sided stomach is present. Kidneys: No hydronephrosis. Normal is less than 5 mm in 2nd trimester, less than 7 mm in 3rd trimester. Cord: 3-vessel cord has orthotopic insertion. Bladder: Normal in size. Extremities: All 4 extremities identified. IMPRESSION: Single intrauterine gestation in breech presentation with estimated age of 20 weeks, 3 days which is concordant with clinical dating. Normal anatomy visualized. face, nose/lips, profile, RVOT are not well visualized. Recommend short interval follow up. Multiple uterine fibroids. Approved by: Judy Moscoso M.D. on 01/21/2024 at 0:02
[2024-01-22 20:38] LABS: AFP Value 63.2 ng/mL (.); Gest Age on Col Date 19.1 weeks (.); Insulin Dep Diabetes No (.); OSBR Risk 1IN 2047 (.); Results Report (.); Test Results *Screen Negative* (.)
== END ==
PROVIDERS: Obstetrics & Gynecology; Referring Provider Specialist; Visit Provider Specialist
DX: Z34.02 Encounter for supervision of normal first pregnancy, second trimester (principal); Z3A.20 20 weeks gestation of pregnancy
CPT/HCPCS: 36415; 76811; 82105; 87086

== ENCOUNTER → 2024-03-04 15:35 | Outpatient (CLI) | payer OTHER, SELFPAY ==
[2024-03-04 17:17] LABS: Hematocrit 31.8 % (36-46); Hemoglobin 11.2 g/dL (12.0-16.0)
[2024-03-04 17:27] LABS: GTT (PREG) 1 Hour PP 50gm Dose 153 mg/dL (76-139)
== END ==
PROVIDERS: Referring Provider Obstetrics & Gynecology; Visit Provider Obstetrics & Gynecology
DX: Z34.02 Encounter for supervision of normal first pregnancy, second trimester (principal); Z3A.26 26 weeks gestation of pregnancy
CPT/HCPCS: 36415; 82950; 85014; 85018; 86850

== ENCOUNTER → 2024-03-18 07:49 | Outpatient (CLI) | payer OTHER, SELFPAY ==
[2024-03-18 08:44] LABS: Glucose Fasting Gestational 104 mg/dL (76-95)
[2024-03-18 11:07] LABS: Glucose 1 Hour Gest 210 mg/dL (76-180)
[2024-03-18 11:08] LABS: Glucose 2 Hour Gest 165 mg/dL (76-155)
[2024-03-18 11:10] LABS: Glucose Tol Interp,Gestational INTERPRETATION
[2024-03-18 12:01] LABS: Glucose 3 Hour Gest 123 mg/dL (76-140)
== END ==
PROVIDERS: Referring Provider Specialist; Visit Provider Specialist
DX: O99.810 Abnormal glucose complicating pregnancy (principal)
CPT/HCPCS: 36415; 82951; 82952

== ENCOUNTER 2024-04-13 15:39 | Observation (INO) | payer OTHER, SELFPAY | END 2024-04-13 16:24 | disposition home or self-care (01) | PROVIDERS: Admitting Provider Obstetrics & Gynecology; Referring Provider Obstetrics & Gynecology; Visit Provider Obstetrics & Gynecology | DX: O47.03 False labor before 37 completed weeks of gestation, third trimester (principal); O36.8130 Decreased fetal movements, third trimester, not applicable or unspecified; Z3A.32 32 weeks gestation of pregnancy | CPT/HCPCS: 59025; G0378; G0379 ==

== ENCOUNTER → 2024-04-17 14:03 | Outpatient (CLI) | payer OTHER, SELFPAY ==
--- NOTE | 2024-04-17 14:05 | DIAB.GDA ---
Initial Gestational Diabetes Assessment Name: Julee Aldana Date: 04/17/24 Time: 8-9a Dx: Gestational Diabetes Provider: Elmira PRISCILLA: 06/08/24 Weeks: 32 Julee presents via telehealth using [employer]. Reports baby measuring large. FBG continue to be slightly elevated. Plans to f/u with BG with OB next week, likely insulin initiation. Interested in CGM. Will place a sample CGM next week and start ordering process. Diet recall: Wake: 730a 8a: granola, Syrian yogurt, fruit OR 1 bagel with avocado and egg OR cereal with milk (kashi) Coffee with creamer 11a: breakfast kind bars OR fruit (apple or banana) 1p: left overs OR tortilla ?roll up? with cabbage mix 6-7p: 1-1 1/3c rice with meat, sometimes veggies OR turkey sausage, bread thin x 3, egg veggies (peppers, tomatoes, onion) OR pizza Beverages: water 20oz x 2+, sparkling water 12oz x 1 Feels she is ?slacking? on water Bed: midnightstaying up hanging out and watching tv. Sleep interrupted 1-2x to urinate. Feels she should sleep a little earlier. Anthropometrics: Ht: 66 Wt: 239# last OB visit Prepregnancy wt: 226# Physical Activity: active at work, childcare. Pain underside of stomach with movement. Self-Monitoring Blood Glucose: 3x the first week >100mg/dl FBG. Checking FBG and 2 hour pc. One more week of logging BG asked for by OB and then will re-evaluate for insulin therapy. Sometimes has to check at 2.5-3 hr due to work schedule. Date Pre Post Pre Post Pre Post Notes 04/10 98 95 115 125 04/11 98 117 124 116 04/12 92 119 120 109 04/13 95 116 109 116 04/14 Sick 04/15 98 103 117 147 04/16 92 103 116 121 04/17 Diabetes Medications: None Pertinent Labs: Screen: 153 H OGTT: 104H 210H 165H 123 Nutrition Rx: Carbohydrates: Meal: 45-g lunch and dinner; 30g breakfast Snack: 15-30g Nutrition Diagnosis: Altered nutrition related lab value r/t GDM dx aeb recent OGTT Food and nutrition related knowledge deficit r/t new dx of GDM aeb OGTT and pt report Physical inactivity r/t discomfort and pain with aeb pt reprot Intervention: This participant was very receptive. Provided appropriate educational handouts. Discussed the following topics: GDM pathophysiology and impact of hyperglycemia on mom and baby Risk for T2DM for mom and baby in the future Ways to reduce risk T2DM Plate Method, meal timing, carb counting, pairing macronutrients and spreading out CHO for better BG management Hydration in Blood glucose goals (FBG: <95 and 2 hour <120 mg/dL); importance of checking 4x per day (FBG and pc) Potential for insulin therapy given elevated FBG Potential for CGM Impact of macronutrients on blood glucose Recommended servings for carbohydrates at meals and snacks Brainstormed appropriate meal plan based on her food preferences Role of physical activity and following provider guidelines for safety Goals: Measure water Aim for veggies BID Keep Cho to 1c at lunch and dinner Send OB blood sugars next week Follow-up: JULIAN ELLISON follow-up in one week for BG review and CGM trial. RD messaged DM supplies company about coverage for with one injection per day. May benefit from HS insulin given trends of persistent FBG elevations. Julee is especially worried since baby is reportedly measuring LGA. Imelda Zhou RDN, CDCES Certified Diabetes Care and Bar Tacker T: [phone] F: [phone] [email or web address] Thank you for this referral
== END ==
PROVIDERS: Referring Provider Obstetrics & Gynecology
DX: O24.419 Gestational diabetes mellitus in pregnancy, unspecified control (principal); Z3A.32 32 weeks gestation of pregnancy; Z71.3 Dietary counseling and surveillance
CPT/HCPCS: 97802

== ENCOUNTER → 2024-04-21 14:24 | Outpatient (CLI) | payer OTHER, SELFPAY ==
--- NOTE | 2024-04-21 14:49 | DIAB.GDFU ---
Follow-up Gestational Diabetes Assessment Name: Julee Aldana Date: 04/21/24 Time: 235-230p Dx: Gestational Diabetes Provider: Elmira PRISCILLA: 06/08/24 Weeks: 33 Julee presents for DM visit. Interested in CGM. Finger sticks causing some sensitivity in fingers per report. Difficulty getting on time readings with job. Rx'd NPH 10u HS. Has not started yet [facility] and [employer]. Last heard from pharmacy about ordering last Saturday. Baby shower this past weekend. Higher CHo intake reported. Worries about baby measuring LGA. Anthropometrics: Ht: 66 Wt: 239# last OB visit Prepregnancy wt: 226# Physical Activity: active at work, childcare. Pain underside of stomach with movement. Self-Monitoring Blood Glucose: Limited recent data since last visit, however this morning's FBG was 103 mg/dl. Last visit indicating 3 elevations >95mg/dl Date Pre Post Pre Post Pre Post Notes 04/10 98 95 115 125 04/11 98 117 124 116 04/12 92 119 120 109 04/13 95 116 109 116 04/14 Sick 04/15 98 103 117 147 04/16 92 103 116 121 04/17 Diabetes Medications: NPH 10u HS Pertinent Labs: Screen: 153 H OGTT: 104H 210H 165H 123 Intervention: This participant was very receptive. Provided appropriate educational handouts. Discussed the following topics: Recent blood sugar results Insulin education and demonstration-- provided handout for support Hypoglycemia s/s and tx with Rule of 15 CGM education accuracy, when to finger stick, benefits, indications, access, arrows and alarms provided education for her to self place trial starter kit Goals: Measure water- continue Aim for veggies BID- continue Keep Cho to 1c at lunch and dinner- continue Send OB blood sugars next week- continue prn Wear Dexcom G7 x 10 days- new Message tomorrow about insulin access- new Follow-up: JULIAN ELLISON follow-up in one week via virtual visit. ELSIE has provided OB office with paperwork for [employer] for G7 sensors. Imelda Zhou RDN, TERRA Certified Diabetes Care and Metal Roofing Mechanic T: [phone] F: [phone] [email or web address] Thank you for this referral
== END ==
PROVIDERS: Referring Provider Obstetrics & Gynecology
DX: O24.414 Gestational diabetes mellitus in pregnancy, insulin controlled (principal); Z3A.33 33 weeks gestation of pregnancy; Z71.3 Dietary counseling and surveillance
CPT/HCPCS: G0108

== ENCOUNTER → 2024-04-28 07:56 | Outpatient (CLI) | payer OTHER, SELFPAY ==
--- NOTE | 2024-04-28 08:03 | DIAB.GDFU ---
Follow-up Gestational Diabetes Assessment Name: Julee Aldana Date: 04/28/24 Time: 8-830a Dx: Gestational Diabetes Provider: Elmira PRISCILLA: 06/08/24 Weeks: 34 Julee presents for GDM f/u virtually using [employer] platform. Really feeling uncomfortable. Was able to access insulin, but limited change in BG. Still in low 100s FBG. Some over 140mg/dl postprandial per CGM reports. Started NPH x 10u last Saturday. Sees OB tomorrow. Will increase to 12u tonight, may need additional 2u this week if continues with hyperglycemia. Ordering in more food recently. Too tired to cook. 1230-530p work schedule now with OB note to work. Going longer periods during the day without eating due to early satiety, but then when she does eat portions may be large, ie pizza. Ham/cheese with pineapple and fries with elevation up to 193mg/dl. Diet recall: 8a: [place] x 2, eggs, tomato OR Malagasy yogurt and small pastry Coffee with creamer 1-3p: leftovers, ie 1.5c fried rice with meat OR egg with toast x 2 9p: hot sub sandwich x 6 OR 1.5c fried rice OR pizza x 4 medium size OR hot sandwich with fries Hs: if craving sweets, will eat strawberries x 2 Beverages: water 70oz, sparkling water 12oz x 1 water intake better when at work. When not at work will forget. Anthropometrics: Ht: 66 Wt: 239# last OB visit Prepregnancy wt: 226# Physical Activity: active at work, childcare. Pain underside of stomach with movement, so PA limited. Self-Monitoring Blood Glucose: FBG all over 100mg/dl during the last week. Postprandial readings often up to 130-140mg/dl. TIme in range: 0% very high 16% >140mg/dl 82% in range 70-140mg/dl 1% low <1% very low Avg glucose 117mg/dl std dev: 25mg/dl Diabetes Medications: 10u NPH HS Pertinent Labs: Screen: 153 H OGTT: 104H 210H 165H 123 Nutrition Rx: Carbohydrates: Meal: 45-g lunch and dinner; 30g breakfast Snack: 15-30g Nutrition Diagnosis: Altered nutrition related lab value r/t GDM dx aeb recent OGTT Food and nutrition related knowledge deficit r/t new dx of GDM aeb OGTT and pt report- improved Physical inactivity r/t discomfort and pain with aeb pt report- continued Excessive CHO intake r/t long periods of fasting aeb diet recall- new Intervention: This participant was very receptive. Provided appropriate educational handouts. Discussed the following topics: Recent blood sugar results and impact of food and hormones Review of macronutrient recommendations during Insulin recs for hyperglycemia Meal timing for managing satiety and hunger Water recs and strategies for consistency Goals: Measure water- met Aim for veggies BID- improved Keep Cho to 1c at lunch and dinner- continue Send OB blood sugars next week- continue prn Wear Dexcom G7 x 10 days- continue Aim for snack at 3p- new Aim for dinner at 7p- new Ask OB about Dexcom G7 rx- new Increase NPH to 12 u and discuss with OB tomorrow- new Follow-up: JULIAN ELLISON follow-up on Saturday for potential personal sensor replacement and review of BG and insulin dose. Dexcom G7 paperwork provided to OB office. Communications with OB RN indicate sending of paperwork to [employer] [facility]. RD contacted DME for updates on status of CGM rx. Imelda Zhou RDN, [facility] Certified Diabetes Care and Dry Mill Worker T: [phone] F: [phone] [email or web address] Thank you for this referral
== END ==
PROVIDERS: Referring Provider Specialist
DX: O24.414 Gestational diabetes mellitus in pregnancy, insulin controlled (principal); Z3A.34 34 weeks gestation of pregnancy; Z71.3 Dietary counseling and surveillance
CPT/HCPCS: 97803

== ENCOUNTER 2024-04-29 08:55 | Observation (INO) | payer OTHER, SELFPAY | END 2024-04-29 09:52 | disposition home or self-care (01) | PROVIDERS: Admitting Provider Obstetrics & Gynecology; Referring Provider Obstetrics & Gynecology; Visit Provider Obstetrics & Gynecology | DX: O24.414 Gestational diabetes mellitus in pregnancy, insulin controlled (principal); O10.913 Unspecified pre-existing hypertension complicating pregnancy, third trimester; O09.513 Supervision of elderly primigravida, third trimester; Z3A.34 34 weeks gestation of pregnancy | CPT/HCPCS: 59025; G0378; G0379 ==

== ENCOUNTER → 2024-05-01 08:18 | Outpatient (CLI) | payer OTHER, SELFPAY ==
--- NOTE | 2024-05-01 08:25 | DIAB.GDFU ---
Follow-up Gestational Diabetes Assessment Name: Julee Aldana Date: 05/01/24 Time: 830-9a Dx: Gestational Diabetes Provider: Elmira PRISCILLA: 06/08/24 Weeks: 35 Julee presents for GDM f/u. Plans for induction May 29. Did not have a chance to ask OB about CGM rx. For two nights took 14u HS insulin. Still having FBG above 100 mg/dl. Baby measuring 88 percentile and 2 weeks ahead. Eating more frequently. Weekends are harder. Difficulty sleeping. OB staff sent PA form, however Ronak does not have form. RD facilitate new form today. Breakfast a bit high in CHO, resulting in elevations. Anthropometrics: Ht: 66 Wt: 245# last OB visit Prepregnancy wt: 226# Physical Activity: active at work, childcare. Pain underside of stomach with movement, so PA limited. Self-Monitoring Blood Glucose: FBG all over 100mg/dl during the last week. Having pc elevations, more consistently after breakfast >140 mg/dl per CGM report. Today TIme in range: 0% very high 16% >140mg/dl 83% in range 70-140mg/dl <1% low <1% very low Avg glucose 119mg/dl std dev: 23mg/dl Last Visit TIme in range: 0% very high 16% >140mg/dl 82% in range 70-140mg/dl 1% low <1% very low Avg glucose 117mg/dl std dev: 25mg/dl Diabetes Medications: 14u NPH HS Pertinent Labs: Screen: 153 H OGTT: 104H 210H 165H 123 Nutrition Rx: Carbohydrates: Meal: 45-g lunch and dinner; 30g breakfast Snack: 15-30g Nutrition Diagnosis: Altered nutrition related lab value r/t GDM dx aeb recent OGTT Physical inactivity r/t discomfort and pain with aeb pt report- continued Excessive CHO intake r/t long periods of fasting aeb diet recall- improved Excessive CHO intake r/t breakfast portions aeb pt report and CGM data- new Intervention: This participant was very receptive. Provided appropriate educational handouts. Discussed the following topics: Recent blood sugar results and impact of food and hormones Review of macronutrient recommendations during Breakfast ideas and portions Insulin titration q 2-[address] days CGM PA discussion. RD contacted OB office. Goals: Aim for snack at 3p- met Aim for dinner at 7p- not discussed Ask OB about Dexcom G7 rx- not met Increase NPH to 12 u and discuss with OB tomorrow- met Aim for smaller breakfast, lower CHO- new Increase NPH to 16u- new Titrate NPH q 2-3 days until FBG <95- new Follow-up: JULIAN ELLISON follow-up in one week Imelda Zhou RDN, SHELLEYES Certified Diabetes Care and Dry Cell Sealer T: [phone] F: [phone] [email or web address] Thank you for this referral
== END ==
LOC: DIET 08:19
PROVIDERS: Referring Provider Obstetrics & Gynecology
DX: O24.414 Gestational diabetes mellitus in pregnancy, insulin controlled (principal); Z3A.35 35 weeks gestation of pregnancy; Z71.3 Dietary counseling and surveillance
CPT/HCPCS: 97803

== ENCOUNTER 2024-05-06 08:53 | Outpatient (CLI) | payer OTHER, SELFPAY ==
--- NOTE | 2024-05-06 09:15 | DI.US.S_ITS ---
PROCEDURE: US OB LIMITED INDICATIONS: Factor V Leiden OUTSIDE/PRIOR DATING DATA: Last menstrual period (LMP): 09/08/2023. LMP-based estimated date of delivery (PRISCILLA): 06/14/2024. First dating scan (date and location): 10/21/2023. Estimated date of delivery (PRISCILLA) from first dating scan: 06/14/2024. The calculations are made using the PRISCILLA of 06/14/2024. TECHNIQUE: Real-time scanning was performed of the fetus, with image documentation and biometric measurements. Endovaginal scanning: Not performed COMPARISON: [facility], , US OB >= 14 WEEKS FETUS, 04/29/2024, 8:56. FINDINGS: General: A single living intrauterine gestation is present. Presentation: Vertex. Placenta: Placental position is left posterior , without previa. Amniotic fluid index: 13.4 cm, normal range is 5-24 cm. Single deepest vertical pocket is 4.6 cm. heart rate: 147 beats per minute. Clinically estimated gestational age: 34 weeks, 3 days Other: Not applicable. IMPRESSION: Single live intrauterine consistent with 34 weeks and 3 days. Normal amniotic fluid index. We strive to produce accurate, complete, and clear reports of imaging services. To assist us in improving patient care, this report was composed using standard report templates and voice recognition software. Therefore, it may contain abnormal punctuation, insertions and/or omissions. Occasional wrong-word or sound-alike substitutions may occur. Though we review the report and make efforts to correct it, we do recommend that the report be read carefully in proper context to recognize any text inaccuracies. Dictated by: Perry Pride M.D. on 05/06/2024 at 10:06 Approved by: Perry Pride M.D. on 05/06/2024 at 10:07
--- NOTE | 2024-05-06 10:09 | P.TNLD_ITS ---
Visit Information Visit Information Date of evaluation: 05/06/24 Primary OB Provider: Rosalia Ku On-call OB Provider: Rosalia Ku [facility] Medical History (Updated 04/19/24 @ 21:00 by Rosalia Ku MD) Ganglion cyst of foot (~2010) Kidney cysts (~03/2022) Psoriasis Obesity LTBI (latent tuberculosis infection) Hyperhidrosis Hx of venous thromboembolic disease Edema of left lower leg Eczema Dysuria Congenital deformity of foot Surgical History (Updated 10/28/23 @ 08:13 by Milana Feldman, RN) History of skin surgery [place] teeth extracted H/O foot surgery Family History (Updated 10/28/23 @ 08:49 by Milana Feldman, RN) Mother Ovarian cancer Father Hypertension Peripheral vascular disease Grandmother Bladder cancer Grandfather No problems noted. Grandmother Cholecystitis Grandfather COPD (chronic obstructive pulmonary disease) Stroke Heavy smoker Brother Psoriasis Family/Other History of recurrent miscarriages Second trimester Social History marital status: number of children: 0 household members: none lives independently: Yes caregiver/support person: No housing: condominium pets and animals: Yes (1 cat, aware of toxo precautions) education level: college occupational status: employed current occupational exposures/hazards: Yes special shakira needs: No travel history: recent seatbelt use: always helmet use: No water heater temp set < 120 deg: Yes working smoke detector in home: Yes fire extinguisher in home: Yes carbon monox detector in home: Yes firearms in home: No do you feel safe at home: Yes Smoking Status: Never smoker second hand exposure: No alcohol intake: former substance use type: does not use during the past year weight has: remained stable well-balanced diet: daily or most days daily servings fruits/ve-4 caffeine: Yes (1-2 cups coffee or black tea/day) Type(s) of exercise: aerobic and weight lifting frequency: 1-2 times per week Exam Narrative Exam Narrative: RHINA: 13 cm Evaluation Evaluation Baseline heart rate: 135 Variability: Moderate (11-25) monitor accelerations: Present Monitor Decelerations: Absent Category of Tracing: Reactive Diagnosis, Plan/Disposition Plan/Disposition Plan: Assessment: 39-year-old 1 para 0 at 35-,2/7 weeks with GDM A2 Reactive nonstress test Normal RHINA Plan: Follow-up in 1 week Warning signs for labor/ kick counts discussed OB Disposition: home
== END 2024-05-06 09:59 | disposition home or self-care (01) ==
LOC: LABOR 09:30 → OB 05-11 15:04
PROVIDERS: Referring Provider Obstetrics & Gynecology; Visit Provider Obstetrics & Gynecology
DX: O24.414 Gestational diabetes mellitus in pregnancy, insulin controlled (principal); Z3A.35 35 weeks gestation of pregnancy
CPT/HCPCS: 59025; 76815; G0378; G0379

== ENCOUNTER → 2024-05-07 08:53 | Outpatient (CLI) | payer OTHER, SELFPAY ==
--- NOTE | 2024-05-08 17:16 | DIAB.GDFU ---
Follow-up Gestational Diabetes Assessment Name: Julee Aldana Date: 05/07/24 Time: 113-983 Dx: Gestational Diabetes Provider: Elmira PRISCILLA: 06/08/24 Weeks: 35 Julee presents for GDM f/u. Plans for induction May 29. Has questions about recs for GDM and BG monitoring. Reports smaller breakfasts since last visit, which seems to make a difference in BG. Had to reduce insulin to 14u after repeat lows with 16u. Anthropometrics: Ht: 66 Wt: 245# last OB visit Prepregnancy wt: 226# Physical Activity: active at work, childcare. Pain underside of stomach with movement, so PA limited. Self-Monitoring Blood Glucose: FBG now in goal <95. Most pc numbers also in goal. Today TIme in range: 0% very high 13% >140mg/dl 86% in range 70-140mg/dl <1% low <1% very low Avg glucose 115mg/dl std dev: 22mg/dl Last Visit TIme in range: 0% very high 16% >140mg/dl 83% in range 70-140mg/dl <1% low <1% very low Avg glucose 119mg/dl std dev: 23mg/dl Diabetes Medications: 14u NPH HS Pertinent Labs: Screen: 153 H OGTT: 104H 210H 165H 123 Intervention: This participant was very receptive. Provided appropriate educational handouts. Discussed the following topics: Recent blood sugar results and impact of food and hormones Review of macronutrient recommendations during Benefits, resources, and nutrition for recommendations for nutrition and physical activity recommendations for T2DM risk reduction OGTT at 6-12 weeks Checking blood sugars twice per week (goal: fasting <100 mg/dL and 2 hour pc <140 mg/dL) until 6 week check-up HgA1c q 1-3 years. Goals: Aim for smaller breakfast, lower CHO- met Increase NPH to 16u- d/c Titrate NPH q 2-3 days until FBG <95- met Continue 14-15u NPH HS- new Check BG 2x per week - new Screen for T2DM - new Schedule with - new Follow-up: JULIAN ELLISON follow-up prn. Julee is managing her GDM well. Encouraged her to call or message with any questions or f/u needs. She agreed. Imelda Zhou RDN, [facility] Certified Diabetes Care and Field Seismologist T: [phone] F: [phone] [email or web address] Thank you for this referral
== END ==
LOC: DIET 08:53
PROVIDERS: Referring Provider Specialist
DX: O24.414 Gestational diabetes mellitus in pregnancy, insulin controlled (principal); Z3A.35 35 weeks gestation of pregnancy; Z71.3 Dietary counseling and surveillance
CPT/HCPCS: G0108

== ENCOUNTER 2024-05-13 12:24 | Outpatient (CLI) | payer OTHER, SELFPAY | END 2024-05-13 12:55 | disposition home or self-care (01) | LOC: OB 05-18 06:15 | PROVIDERS: Referring Provider Obstetrics & Gynecology; Visit Provider Obstetrics & Gynecology | DX: O10.913 Unspecified pre-existing hypertension complicating pregnancy, third trimester (principal); O24.419 Gestational diabetes mellitus in pregnancy, unspecified control; O09.513 Supervision of elderly primigravida, third trimester; Z3A.33 33 weeks gestation of pregnancy; Z3A.36 36 weeks gestation of pregnancy | CPT/HCPCS: 59025; 87186; 87653; G0378; G0379 ==

== ENCOUNTER → 2024-05-13 13:40 | Outpatient (CLI) | payer OTHER, SELFPAY ==
[2024-05-14 14:06] LABS: Strep Grp B PCR POS for Grp B Strep
== END ==
PROVIDERS: Referring Provider Obstetrics & Gynecology; Visit Provider Obstetrics & Gynecology
DX: Z3A.36 36 weeks gestation of pregnancy (principal); Z34.03 Encounter for supervision of normal first pregnancy, third trimester
CPT/HCPCS: 87653

== ENCOUNTER 2024-05-19 19:29 | Inpatient (IN) | payer OTHER, SELFPAY ==
[2024-05-19 20:25] VITALS: BP 128/71
[2024-05-19 21:00] VITALS: BP 128/71; PULSE 85
[2024-05-19] MEDS: miSOPROStoL 25 MCG TABLET PO (21:00)
[2024-05-19] MEDS: LABETALOL 100 MG TABLET PO (21:00)
[2024-05-19] MEDS: INSULIN NPH 100 UNIT/ML 10ML VIAL 14 UNIT SUBCUT (21:16)
[2024-05-19 21:27] LABS: Add Manual Diff / Slide Review NO; Basophils Absolute Auto 0 /uL (0-100); Basophils Percent Auto 0.2 % (0-2); Eosinophils Absolute Auto 0 /uL (0-450); Eosinophils Percent Auto 0.5 % (2-4); Hematocrit 37.4 % (36-46); Lymphocytes Absolute Auto 2300 /uL (1100-4500); Lymphocytes Percent Auto 28.5 % (25-40); Mean Corpuscular HGB Conc 34.7 % (30-36); Mean Corpuscular Hemoglobin 33.1 PG (26-34); Mean Corpuscular Volume 95.2 fL (80-100); Monocytes Absolute Auto 600 /uL (0-900); Monocytes Percent Auto 7.8 % (3-14); Neutrophils Absolute Auto 5000 /uL (1500-7000); Platelet Count 155 X10^3/uL (150-400); Red Blood Cell Count 3.93 X10^6/uL (4.0-5.2); Red Cell Distribution Width 13.9 % (11.6-14.8); White Blood Cell Count 7.9 X10^3/uL (4.5-11.0)
[2024-05-19 21:33] LABS: Aspartate Aminotransferase 26 IU/L (14-36); BUN Creatinine Ratio 16.1 (6-22); Blood Urea Nitrogen 9 mg/dL (7-17); Estimated Glomerular Filt Rate > 60 mL/min (>60)
[2024-05-20] MEDS: miSOPROStoL 25 MCG TABLET PO (04:50)
[2024-05-20 08:57] VITALS: BP 132/78; PULSE 66
[2024-05-20] MEDS: LABETALOL 100 MG TABLET PO ×2 (08:57→21:14)
--- NOTE | 2024-05-20 11:31 | P.HPOB_ITS ---
OB HPI Date/Time Date of admission: 05/20/24 Date Patient Seen: 05/20/24 Time Patient Seen: 09:00 History of Present Condition Chief complaint: labor PRISCILLA Calculator 2 Estimated Delivery Date Method Current WG Current Estimate 06/08/24 Ultrasound #1 37w 3d Other Estimates 06/14/24 LMP (Certain) 36w 4d Estimated Gestational Age (weeks): 37+2 : 1 Para: 0 care: good care, initiated at week # (8), number of visits (10) and pounds weight gain (14) Dating criteria OB: LMP confirmed by 1st trimester US Ultrasounds: normal 1st trimester US and normal mid trimester US Obstetrical complications: gestational diabetes (on 14U NPH at hs) and gestational hypertension (on Labetolol 200mg BID) Medical complications OB: other (Leiden Factor V, on Lovenox 40mg/day SQ) Indications Indication for induction OB: gestational HTN/pre-eclampsia Preadmission Labs Last OB Lab Results: 2 Blood Type A Negative 05/19/24 20:58 Antibody Screen Negative 05/19/24 20:58 Hematocrit 37.4 % (36-46) 05/19/24 20:58 Hemoglobin 13.0 g/dL (12.0-16.0) 05/19/24 20:58 Hepatitis B Surface Antigen Negative s/c (NEGATIVE) 11/14/23 16 :51 Hepatitis C Antibody Negative s/c (NEGATIVE) 11/14/23 16:51 Rubella Antibody 52.9 IU/mL (>15) 11/14/23 16:51 Varicella-Zoster IgG Antibody <135 index (Immune >165) L 16:51 Glucose 1 Hour 153 mg/dL (76-139) H 03/04/24 15:39 Group B Streptococcus (PCR) Pos for grp b strep H 05/13/24 13:3 5 Glucose Tolerance Testing: Fasting (104), 1 hr (210), 2 hr (165) and 3 hr (123) -: Chlamydia screen: negative, Gonorrhea screen: negative and Urine: negative -: PAP smear: Normal Genetic Screens: Cell-free DNA: Normal (normal female) and Alpha-fetoprotein: Normal External Labs -: Urine: negative Evaluation Evaluation Baseline heart rate: 135 Variability: Moderate (11-25) monitor accelerations: Present Monitor Decelerations: Absent Uterine Contraction Intensity: Mild Status: Category l Dilation (cm): 0 Effacement (%): 80 Dilation: Closed Effacement: >/=80% station: -2 Position of cervix: posterior Consistency: soft Brenner score: 6 PFSH Medical History (Updated 04/19/24 @ 21:00 by Rosalia Ku MD) Ganglion cyst of foot (~2010) Kidney cysts (~03/2022) Psoriasis Obesity LTBI (latent tuberculosis infection) Hyperhidrosis Hx of venous thromboembolic disease Edema of left lower leg Eczema Dysuria Congenital deformity of foot Surgical History (Updated 10/28/23 @ 08:13 by Milana Feldman RN) History of skin surgery [place] teeth extracted H/O foot surgery Family History (Updated 10/28/23 @ 08:49 by Milana Feldman RN) Mother Ovarian cancer Father Hypertension Peripheral vascular disease Grandmother Bladder cancer Grandfather No problems noted. Grandmother Cholecystitis Grandfather COPD (chronic obstructive pulmonary disease) Stroke Heavy smoker Brother Psoriasis Family/Other History of recurrent miscarriages Second trimester Social History marital status: number of children: 0 household members: none lives independently: Yes caregiver/support person: [facility] pets and animals: Yes (1 cat, aware of toxo precautions) education level: college occupational status: employed current occupational exposures/hazards: Yes special shakira needs: No travel history: recent seatbelt use: always helmet use: No water heater temp set < 120 deg: Yes working smoke detector in home: Yes fire extinguisher in home: Yes carbon monox detector in home: Yes firearms in home: No do you feel safe at home: Yes Smoking Status: Never smoker second hand exposure: No alcohol intake: former substance use type: does not use during the past year weight has: remained stable well-balanced diet: daily or most days daily servings fruits/ve-4 caffeine: Yes (1-2 cups coffee or black tea/day) Type(s) of exercise: aerobic and weight lifting frequency: 1-2 times per week Meds Home Medications and Allergies Home Medications Medication Instructions Recorded Confirmed Type vitamin-ferrous sulfate tab PO 10/28/23 04/29/24 History 27 mg iron-folic acid 0.8 mg tablet enoxaparin 40 mg/0.4 mL 40 mg (0.4 mL) SUBCUT DAILY #12 mL 02/03/24 04/29/24 Rx subcutaneous syringe labetalol 100 mg tablet 100 mg PO BID #60 tabs 02/06/24 04/29/24 Rx blood sugar diagnostic (Blood #120 ea 03/19/24 04/29/24 Rx Glucose Test strips) blood-glucose meter (Blood Glucose #1 ea 03/19/24 04/29/24 Rx Monitoring kit) lancets #120 ea 03/19/24 04/29/24 Rx [id number] antigen-AS01E 0.5 ml IM ONCE #1 ea 04/15/24 04/29/24 Rx adjuvant(PF) 120 mcg/0.5 mL IM suspension, kit breast pump #1 ea 04/15/24 04/29/24 Rx insulin NPH isoph U-100 human 100 10 unit (0.1 mL) SUBCUT QPM #15 mL 05/08/24 Rx unit/mL (3 mL) subcutaneous pen (Humulin N NPH U-100 Insulin KwikPen) hydrocortisone 2.5 % topical cream 1 applic DE QD-BID PRN hemorrhoids 05/13/24 05/13/24 Rx with perineal applicator #30 grams (Anusol-HC) heparin (porcine) 5,000 unit/mL 5,000 unit SUBCUT Q12H #24 mL 05/14/24 Rx injection syringe heparin, porcine (PF) 5,000 5,000 unit (0.5 mL) SUBCUT Q12H #5 05/14/24 Rx unit/0.5 mL subcutaneous syringe mL Allergies Allergy/AdvReac Type Severity Reaction Status Date / Time ampicillin Allergy Intermediate Rash Verified 04/29/24 08:31 tuberculin,PPD,multi-puncture AdvReac Intermediate Do Not Give Verified 04/29/24 08:31 OB Exam Vital signs Blood Pressure: 134/82 Narrative Exam Narrative: Gen: Sitting up in bed, NAD Lungs: CTA bilat CV: RRR FH: 40 cm EFW: 7# Ext: tr edema Objective Labs 05/19/24 20:58 05/19/24 20:58 Labs: Laboratory Results - last 24 hr 05/19/24 20:58 WBC 7.9 RBC 3.93 L Hgb 13.0 Hct 37.4 MCV 95.2 MCH 33.1 MCHC 34.7 RDW 13.9 Plt Count 155 Neut % (Auto) 63.0 Lymph % (Auto) 28.5 Toole % (Auto) 7.8 Eos % (Auto) 0.5 L Baso % (Auto) 0.2 Neut # (Auto) 5000 Lymph # (Auto) 2300 [place]ole # (Auto) 600 Eos # (Auto) 0 Baso # (Auto) 0 BUN 9 Creatinine 0.56 Estimated GFR > 60 BUN/Creatinine Ratio 16.1 Uric Acid 5.0 AST 26 Blood Type A Negative Antibody Screen Negative Assessment and Plan Assessment and Plan Assessment and Plan narrative: Assessment: 39 year old at 37+2 wks gestation s/p one dose of Misoprostol Kala too frequently for another dose GBS + Gest HTN on PO Labetolol Gest DM on 14 U NPH Plan: Monitor BS with CGM Continue Labetolol and Insulin Antibiotics once in active labor for GBS Low dose Pitocin Peds notified Expectant management to KAEL
--- NOTE | 2024-05-20 13:49 | PM.OBPNLAB ---
Date/Time Date Patient Seen: 05/20/24 Time Patient Seen: 13:49 Pain Control Pain control: tolerating well Contractions Contractions on admission: none Monitor mode: External Pitocin rate (mU/min): 2 Contraction frequency (min): 4 Contraction intensity: Mild Status status: Category l Heart Rate Baseline: 130 Monitor Accelerations: Present Monitor Decelerations: Absent Monitor Variability: Moderate Assessment and Plan Assessment: induction ongoing Plan: continuous present management Comments: Continue Pitocin until this evening and then reevaluate for cervical ripening overnight
[2024-05-20] MEDS: LACTATED RINGERS 1,000 ML 100 ML IV (14:11)
[2024-05-20] MEDS: OXYTOCIN PREMIX 30 UNIT/500 ML PLAST..BAG IV (14:13)
[2024-05-20] MEDS: DINOPROSTONE VAG (CERVIDIL) 10 MG VAG (20:41)
[2024-05-20 21:14] VITALS: BP 133/76; PULSE 73
[2024-05-20] MEDS: ZOLPIDEM 5 MG TABLET PO (21:14)
--- NOTE | 2024-05-21 09:35 | PM.OBPNLAB ---
Date/Time Date Patient Seen: 05/21/24 Time Patient Seen: 16:45 Pain Control Comments: Getting uncomfortable Pelvic Exam Amniotic membrane status: Intact Contractions Contractions on admission: none Monitor mode: External Pitocin rate (mU/min): 2 Contraction frequency (min): 4 Contraction pattern: Regular Contraction intensity: Mild Status status: Category l Heart Rate Baseline: 135 Monitor Accelerations: Present Monitor Decelerations: Absent Monitor Variability: Moderate Assessment and Plan Assessment: induction ongoing Plan: continuous present management Comments: Continue low dose Pitocin until this evening and then evaluate for Misoprostol overnight
--- NOTE | 2024-05-21 09:35 | PM.OBPNLAB ---
Date/Time Date Patient Seen: 05/21/24 Time Patient Seen: 08:50 Pain Control Pain control: tolerating well (Getting more uncomfortable) Comments: Received Cervidil overnight Pelvic Exam Dilation (cm): 1 Effacement (%): 80 station: -2 Amniotic membrane status: Intact Contractions Contractions on admission: none Monitor mode: External Contraction frequency (min): 3 Contraction duration (min): 1 Contraction intensity: Moderate Status status: Category l Heart Rate Baseline: 140 Monitor Accelerations: Present Monitor Decelerations: Absent Monitor Variability: Moderate Assessment and Plan Assessment: induction ongoing Plan: continuous present management Comments: Evaluate this evening for Misoprostol overnight
[2024-05-21] MEDS: LABETALOL 100 MG TABLET PO ×2 (10:11→21:54)
[2024-05-21] MEDS: miSOPROStoL 25 MCG TABLET 50 MCG PO ×2 (11:16→22:58)
[2024-05-21 21:54] VITALS: BP 141/90; PULSE 81
[2024-05-21] MEDS: INSULIN NPH 100 UNIT/ML 10ML VIAL 14 UNIT SUBCUT (22:03)
[2024-05-21 22:16] VITALS: BP 134/82
[2024-05-21] MEDS: ZOLPIDEM 5 MG TABLET PO (22:59)
[2024-05-22] MEDS: fentaNYL 100 MCG/2 ML INJ 50 MCG IV ×2 (01:55→06:03)
[2024-05-22 08:45] VITALS: BP 124/57; PULSE 66
[2024-05-22] MEDS: LABETALOL 100 MG TABLET PO ×2 (08:45→21:52)
--- NOTE | 2024-05-22 10:00 | PM.OBPNLAB ---
Date/Time Date Patient Seen: 05/22/24 Time Patient Seen: 09:35 Pain Control Pain control: tolerating well Pelvic Exam Effacement (%): 80 station: -2 Amniotic membrane status: Intact Contractions Contractions on admission: none Monitor mode: External Contraction frequency (min): 3 Contraction duration (min): 1 Contraction pattern: Regular Contraction intensity: Moderate Status status: Category l Heart Rate Baseline: 130 Monitor Accelerations: Present Monitor Decelerations: Absent Monitor Variability: Moderate Assessment and Plan Assessment: induction ongoing Plan: other Comments: Epidural placement Lewis bulb after epidural Begin group B strep prophylaxis Artificial rupture membranes 1 second dose of antibiotics given
[2024-05-22 10:40] LABS: Add Manual Diff / Slide Review NO; Basophils Absolute Auto 0 /uL (0-100); Basophils Percent Auto 0.3 % (0-2); Eosinophils Absolute Auto 100 /uL (0-450); Eosinophils Percent Auto 0.6 % (2-4); Hemoglobin 12.8 g/dL (12.0-16.0); Lymphocytes Absolute Auto 2000 /uL (1100-4500); Lymphocytes Percent Auto 21.5 % (25-40); Mean Corpuscular HGB Conc 34.6 % (30-36); Mean Corpuscular Volume 95.4 fL (80-100); Monocytes Absolute Auto 700 /uL (0-900); Monocytes Percent Auto 8.2 % (3-14); Neutrophils Absolute Auto 6300 /uL (1500-7000); Neutrophils Percent Auto 69.4 % (50-75); Platelet Count 127 X10^3/uL (150-400); Red Blood Cell Count 3.88 X10^6/uL (4.0-5.2); Red Cell Distribution Width 14.1 % (11.6-14.8); White Blood Cell Count 9.1 X10^3/uL (4.5-11.0)
--- NOTE | 2024-05-22 12:07 | P.PCN_ITS ---
[facility] <Yolis Villarreal, DO - Last Filed: 05/25/24 08:46> Pre-procedure Procedure: Continuous Lumbar Epidural for L&D (with dural puncture) Attending OB provider: Rosalia Ku PM/ROS narrative: 39yo female with risk factors of AMA, gestational DM, gestational HTN, Factor V Leiden, and morbid obesity is scheduled for induction, at 1 cm, and requesting epidural. See pre-anesthesia evaluation for further details. ASA Class: III Labs: Hct 37.0 % (36-46) 05/22/24 10:30 Plt Count 127 X10^3/uL (150-400) L 05/22/24 10:30 Medications: Current Medications Generic Name Dose Route Start Last Admin Trade Name Freq PRN Reason Stop Dose Admin Butorphanol Tartrate 0.5 mg 05/22/24 11:57 Butorphanol 1 Mg/Ml Vial IV 05/23/24 11:57 Q3HR PRN PRURITUS Calcium Carbonate 1,000 mg 05/19/24 19:39 Calcium Carbonate 500 Mg Tab PO Q4HR PRN Dyspepsia Carboprost Tromethamine 250 mcg 05/19/24 19:39 Carboprost 250 Mcg/Ml Ampul IM Q90M PRN Bleeding Diphenhydramine HCl 25 mg 05/22/24 11:56 Diphenhydramine 50 Mg/Ml Vial IV Q10M PRN Pruritis Diphenhydramine HCl 25 mg 05/22/24 11:57 Diphenhydramine 50 Mg/Ml Vial IV 05/23/24 11:57 Q3HR PRN PRURITUS Ephedrine Sulfate 10 mg 05/22/24 11:56 Ephedrine 50 Mg/Ml Vial IV Q5M PRN Blood pressure decrease more than 20% of baseline. Fentanyl 50 mcg 05/19/24 19:39 05/22/24 06:03 Fentanyl 100 Mcg/2 Ml Inj IV 50 mcg Q1H PRN Administration Pain, Moderate (4-6) Cefazolin Sodium 1 gm/ Sodium 100 mls @ 200 mls/hr 05/20/24 04:00 Chloride IV Q8H JONATHAN Lactated Ringer's 1,000 mls @ 100 mls/hr 05/19/24 19:45 05/20/24 14:11 Lactated Ringers IV 100 mls/hr CONT JONATHAN Administration Oxytocin/Lactated Ringer's 30 unit in 500 mls @ 2 mls/hr 05/19/24 19:45 05/20/24 14:13 Oxytocin Premix IV 1 milliunit/min TITRATE JONATHAN 1 mls/hr Administration Protocol 2 MILLIUNIT/MIN Oxytocin/Lactated Ringer's 30 unit in 500 mls @ 200 mls/hr 05/19/24 19:39 Oxytocin Premix IV CONT PRN Bleeding Protocol Tranexamic Acid 1,000 mg/ 100 mls @ 600 mls/hr 05/19/24 19:39 Sodium Chloride IV NOW PRN Bleeding FENT 2MCG/ML BUPIV 0.125% EPI 200 mcg in 100 mls @ 6 mls/hr 05/22/24 12:00 Fentanyl/Bupiv/Ns 2mcg/Ml - 0.125% EPIDURAL CONT JONATHAN Labetalol HCl 100 mg 05/19/24 21:00 05/22/24 08:45 Labetalol 100 Mg Tablet PO 100 mg BID [facility] Administration Lidocaine HCl 20 ml 05/19/24 19:39 Lidocaine 1% 20 Ml INJ INTRA-OP PRN Post Delivery Methylergonovine Maleate 0.2 mg 05/19/24 19:39 Methylergonovine 0.2 Mg/Ml Vial IM NOW PRN Bleeding Methylergonovine Maleate 0.2 mg 05/19/24 19:39 Methylergonovine 0.2 Mg Tablet PO Q6HR PRN Heavy Bleeding Metoclopramide HCl 10 mg 05/22/24 11:57 Metoclopramide 10 Mg/2 Ml Inj IV 05/23/24 11:57 Q4H PRN Nausea Misoprostol 800 mcg 05/19/24 19:39 Misoprostol 200 Mcg Tablet MD NOW PRN Bleeding Misoprostol 400 mcg 05/19/24 19:39 Misoprostol 200 Mcg Tablet SL NOW PRN Bleeding Misoprostol 25 mcg 05/19/24 20:00 05/20/24 04:50 Misoprostol 25 Mcg Tablet PO 25 mcg Q4H JONATHAN Administration Misoprostol 50 mcg 05/21/24 09:22 05/21/24 22:58 Misoprostol 25 Mcg Tablet PO 50 mcg Q4H PRN Administration Labor Induction Nalbuphine HCl 2.5 mg 05/22/24 11:56 Nalbuphine 20 Mg/Ml Ampul IV Q10M PRN Pruritis Nalbuphine HCl 5 mg 05/22/24 11:57 Nalbuphine 20 Mg/Ml Ampul IV Q6H PRN PRURITIS Naloxone HCl 0.2 mg 05/19/24 19:39 Naloxone 0.4 Mg/Ml Vial IV Q2MIN PRN Opiate Reversal Ondansetron HCl 4 mg 05/19/24 19:39 Ondansetron 4 Mg/2 Ml Inj IV Q4HR PRN Nausea And Vomiting Oxytocin 10 unit 05/19/24 19:39 Oxytocin 10 Unit/Ml Vial IM NOW PRN Bleeding Zolpidem Tartrate 5 mg 05/20/24 16:34 05/21/24 22:59 Zolpidem 5 Mg Tablet PO 5 mg BEDTIME PRN Administration Sleep Allergies: Allergies Allergy/AdvReac Type Severity Reaction Status Date / Time ampicillin Allergy Intermediate Rash Verified 04/29/24 08:31 tuberculin,PPD,multi-puncture AdvReac Intermediate Do Not Give Verified 04/29/24 08:31 Procedure Insertion date: 05/22/24 Insertion time: 11:33 Prep/Local: 1% lidocaine (3 ml; Chloraprep) Interspace: L3-4 Patient position: sitting Needle: 18 gauge Hustead (5 22g Pencan spinal needle for dural puncture) Loss of resistance with: saline MARIELA at (cm): 8 Catheter placed at SKIN (cm): 14 Catheter in SPACE (cm): 6 Insertion: Yes CSF, No Blood, Yes Paresthesia with insertion, No Paresthesia with injection and No Test dose reaction Initial Medications TEST DOSE time: 11:35 TEST DOSE: 1.5% lidocaine with epinephrine 1:200k (mL): 3 BOLUS DOSE time: 11:36 BOLUS DOSE (mL): 2 BOLUS DOSE med: other (Same as test dose) Infusion INFUSION: 0.125% bupivacaine and with fentanyl 2 mcg/mL Initial rate (mL/hr): 8 Subsequent interventions: Epidural catheter placed easily on first attempt after dural puncture. By the time epidural pump was ready, pt reported no change after test and bolus. Additional 10 ml bolus of epidural infusion given at 11:52 and then pump started. Post-procedure Anesthesia date START: 05/22/24 Anesthesia time START: 11:30 Anesthesia date END: 05/23/24 Anesthesia time END: 10:22 Post-procedure Anesthesia Assessment: Yes CV function: HR/BP stable, Yes Resp function: RR/sat/airway adequate, Yes Post-op hydration adequate, Yes Pain control adequate, Yes Nausea & vomiting absent, Yes Temperature > 36 C, Yes Mental status appropriate and No Anesthesia complications <Rajni Hayden MD - Last Filed: 05/22/24 17:58> Infusion Subsequent interventions: Epidural catheter placed easily on first attempt after dural puncture. By the time epidural pump was ready, pt reported no change after test and bolus. Additional 10 ml bolus of epidural infusion given at 11:52 and then pump started. ATSP at 17:10 pt with discomfort while being checked, feels tugging on ladd catheter, sensory level bilateral, slight diminish to touch up to ribs bilat. pt affect without change during contractions during interview. Bolused with 10 ml bupiv 0.175 % including 100 mcg fentanyl. infusion rate increased to 12 ml/hr, fisher sponge hooking dose to 5 ml q 15min, use of PROGRESS MAN button re explained.
[2024-05-22] MEDS: OXYTOCIN PREMIX 30 UNIT/500 ML PLAST..BAG IV (13:26)
[2024-05-22] MEDS: CEFAZOLIN VIAL 2 GM in SODIUM CHLORIDE 0.9% 100 ML IV (13:33)
--- NOTE | 2024-05-22 14:48 | PM.OBPNLAB ---
Date/Time Date Patient Seen: 05/22/24 Time Patient Seen: 13:05 Pain Control Pain control: epidural Pelvic Exam Dilation (cm): 1 Effacement (%): 85 station: -1 Amniotic membrane status: Intact Contractions Contractions on admission: none Monitor mode: External Contraction frequency (min): 5 Contraction duration (min): 1 Contraction pattern: Regular Contraction intensity: Moderate Status status: Category l Heart Rate Baseline: 125 Monitor Accelerations: Present Monitor Decelerations: Absent Monitor Variability: Absent Assessment and Plan Assessment: induction ongoing Comments: Lewis catheter placed in the cervical os Low dose Pitocin Expectant management to
--- NOTE | 2024-05-22 17:18 | PM.OBPNLAB ---
Date/Time Date Patient Seen: 05/22/24 Time Patient Seen: 17:19 Pain Control Pain control: epidural Pelvic Exam Dilation (cm): 5 Effacement (%): 85 station: 0 Amniotic membrane status: Bulging Contractions Contractions on admission: none Monitor mode: External Pitocin rate (mU/min): 5 Contraction frequency (min): 4 Contraction duration (min): 1 Contraction pattern: Regular Contraction intensity: Strong/Firm Status status: Category l Heart Rate Baseline: 130 Monitor Accelerations: Present Monitor Decelerations: Absent Monitor Variability: Moderate Assessment and Plan Assessment: active labor Comments: AROM after second dose of antibiotics in Expectant management to
[2024-05-22] MEDS: FENT 2MCG/ML BUPIV 0.125% EPI 200 MCG/100 ML PLAST..BAG 6 MCG EPIDURAL (20:35)
--- NOTE | 2024-05-22 21:16 | PM.OBPNLAB ---
Date/Time Date Patient Seen: 05/22/24 Time Patient Seen: 21:16 Pain Control Pain control: epidural (Feeling some discomfort) Pelvic Exam Dilation (cm): 5 Effacement (%): 85 station: -2 Amniotic membrane status: Intact Contractions Contractions on admission: none Monitor mode: External Pitocin rate (mU/min): 5 Contraction frequency (min): 4 Contraction duration (min): 1 Contraction pattern: Irregular Contraction intensity: Strong/Firm Status status: Category l Heart Rate Baseline: 130 Monitor Accelerations: Present Monitor Decelerations: Absent Monitor Variability: Minimal Comments: Just received a bolus in the epidural Assessment and Plan Assessment: induction ongoing Comments: Attempted AROM, patient very uncomfortable Titrate Pitocin to every 3 minute contractions Position changes Notify anesthesia of patient's discomfort
[2024-05-22 21:52] VITALS: BP 111/50; PULSE 65
[2024-05-22] MEDS: CEFAZOLIN VIAL 1 GM in SODIUM CHLORIDE 0.9% 100 ML IV (21:54)
[2024-05-22] MEDS: INSULIN NPH 100 UNIT/ML 10ML VIAL 7 UNIT SUBCUT (22:26)
[2024-05-22] MEDS: ONDANSETRON 4 MG/2 ML INJ IV (23:36)
[2024-05-23] MEDS: FENT 2MCG/ML BUPIV 0.125% EPI 200 MCG/100 ML PLAST..BAG 6 MCG EPIDURAL ×2 (01:08→08:15)
--- NOTE | 2024-05-23 02:24 | PM.OBPNLAB ---
Date/Time Date Patient Seen: 05/23/24 Time Patient Seen: 02:24 Pain Control Pain control: epidural Pelvic Exam Dilation (cm): 5 Effacement (%): 85 station: -1 Amniotic membrane status: Bulging Contractions Contractions on admission: none Monitor mode: External Pitocin rate (mU/min): 6 Contraction frequency (min): 3 Contraction duration (min): 1 Contraction pattern: Irregular Contraction intensity: Strong/Firm Status status: Category l Heart Rate Baseline: 130 Monitor Accelerations: Present Monitor Decelerations: Absent Monitor Variability: Moderate (mixed with perioids of minimal) Assessment and Plan Assessment: active labor Comments: AROM with copious clear amniotic fluid and small amount of old blood IUPC placed Will reassess in 2 hours
[2024-05-23] MEDS: CEFAZOLIN VIAL 1 GM in SODIUM CHLORIDE 0.9% 100 ML IV (05:37)
--- NOTE | 2024-05-23 09:28 | PM.OBPNLAB ---
Date/Time Date Patient Seen: 05/23/24 Time Patient Seen: 08:45 Pain Control Pain control: epidural Pelvic Exam Dilation (cm): 10 Effacement (%): 100 station: 0 Amniotic membrane status: Ruptured Contractions Contractions on admission: none Monitor mode: External Pitocin rate (mU/min): 12 Contraction frequency (min): 3 Contraction duration (min): 1 Contraction pattern: Irregular Contraction intensity: Strong/Firm Status status: Category l Heart Rate Baseline: 125 Monitor Accelerations: Present Monitor Decelerations: Absent Monitor Variability: Moderate Assessment and Plan Comments: Begin pushing Expectant management to
[2024-05-23] MEDS: TRANEXAMIC ACID 1,000 MG in SODIUM CHLORIDE 0.9% 100 ML 600 MG IV (11:09)
[2024-05-23] MEDS: DERMOPLAST SPRAY 20% 60 ML 1 SPRAY TOP (13:42)
[2024-05-23] MEDS: ACETAMINOPHEN 325 MG TABLET 650 MG PO ×2 (13:43→21:00)
[2024-05-23] MEDS: IBUPROFEN 600 MG TABLET PO ×2 (13:43→20:58)
[2024-05-23] MEDS: LANOLIN OINT 7 GM 1 APPLIC TOP (13:43)
[2024-05-23] MEDS: HYDROCORTISONE 2.5% CREAM 30 GM 1 APPLIC PR (13:45)
[2024-05-23] MEDS: RHO(D) IMMUNE GLOBULIN 1,500 UNIT SYRINGE 1500 UNIT IM (18:11)
[2024-05-23 20:29] VITALS: BP 120/54; PULSE 75; RESP 18; TEMP 36.6
[2024-05-23 21:00] VITALS: BP 128/72; PULSE 66
[2024-05-23] MEDS: LABETALOL 100 MG TABLET PO (21:00)
[2024-05-24] MEDS: ACETAMINOPHEN 325 MG TABLET 650 MG PO ×3 (03:11→15:57)
[2024-05-24] MEDS: IBUPROFEN 600 MG TABLET PO ×3 (03:12→15:57)
[2024-05-24 06:51] LABS: Add Manual Diff / Slide Review NO; Basophils Absolute Auto 0 /uL (0-100); Basophils Percent Auto 0.2 % (0-2); Eosinophils Absolute Auto 100 /uL (0-450); Eosinophils Percent Auto 0.9 % (2-4); Hematocrit 32.4 % (36-46); Hemoglobin 11.1 g/dL (12.0-16.0); Lymphocytes Absolute Auto 2100 /uL (1100-4500); Lymphocytes Percent Auto 19.8 % (25-40); Mean Corpuscular HGB Conc 34.3 % (30-36); Mean Corpuscular Volume 96.3 fL (80-100); Monocytes Absolute Auto 1100 /uL (0-900); Neutrophils Absolute Auto 7500 /uL (1500-7000); Neutrophils Percent Auto 69.1 % (50-75); Platelet Count 105 X10^3/uL (150-400); Red Blood Cell Count 3.37 X10^6/uL (4.0-5.2); Red Cell Distribution Width 14.1 % (11.6-14.8); White Blood Cell Count 10.8 X10^3/uL (4.5-11.0)
--- NOTE | 2024-05-24 09:19 | PM.OBDS.1 ---
Discharge Providers Provider Date of admission: 05/19/24 19:29 Primary care physician: Zayda HDZ Provider Consults: 05/19/24 19:39 Consult to Anesthesiology Urgent Comment: Consulting Provider: Anesthesiologist Reason for consultation: Epidural Has provider been notified: No 05/24/24 10:35 Consult to Pre Sales Architect Routine Comment: Discharge provider: Marina Hansen MD Summary Hospital Course Date Patient Seen: 05/24/24 Time Patient Seen: 09:19 Peripartum Data complications: none Status at Discharge Cognitive/behavioral status at discharge: oriented Functional status at discharge: independent ambulation Overall status at discharge: patient is back to baseline Time Spent with Patient Time attestation: Total time spent providing and/or coordinating discharge services: Time spent: Greater than 30 minutes Objective Labs 05/24/24 06:42 05/19/24 20:58 Labs: Laboratory Results - last 24 hr 05/24/24 06:42 WBC 10.8 RBC 3.37 L Hgb 11.1 L Hct 32.4 L MCV 96.3 MCH 33.0 MCHC 34.3 RDW 14.1 Plt Count 105 L Neut % (Auto) 69.1 Lymph % (Auto) 19.8 L [place] % (Auto) 10.0 Eos % (Auto) 0.9 L Baso % (Auto) 0.2 Neut # (Auto) 7500 H Lymph # (Auto) 2100 [place] # (Auto) 1100 H Eos # (Auto) 100 Baso # (Auto) 0 Exam Narrative Exam Narrative: GEN: Healthy appearing, well-developed, NAD. PSYCH: Good Judgment. AOx3. Normal memory, mood, and affect HEENT: -Head: NC/AT -Eyes: No discharge or redness CV: warm and well perfused, RRR, no murmurs LUNGS: breathing comfortably on RA, CTAB ABD: fundus firm, below umbilicus SKIN: Warm, well perfused. No skin rashes or abnormal lesions MSK: No deformities, left leg slightly larger than right but per pt this is stable from prior since her original DVT NEURO: Ambulating with no limitations. No focal deficits Discharge Plan Discharge orders & Medications Prescriptions: No Action enoxaparin 40 mg/0.4 mL syringe 40 mg SUBCUT DAILY Qty: 12 4RF (DME) Blood Glucose Test Strip See Rx Instructions .ROUTE .MEDSUPPLY Qty: 120 3RF Rx Instructions: Testing blood sugars fasting and 2 hr PP (DME) lancets Misc See Rx Instructions .ROUTE .MEDSUPPLY Qty: 120 3RF Rx Instructions: Testing blood sugars fasting and 2 hr PP (DME) blood-glucose meter [Blood Glucose Monitoring] Kit See Rx Instructions .ROUTE .MEDSUPPLY Qty: 1 0RF Rx Instructions: To use with testing fasting and 2 hr PP blood sugars Humulin N NPH Insulin KwikPen 100 unit/mL (3 mL) insulin pen 10 unit SUBCUT QPM Qty: 15 1RF heparin, porcine (PF) 5,000 unit/0.5 mL syringe 5,000 unit SUBCUT Q12H Qty: 5 1RF heparin (porcine) 5,000 unit/mL syringe 5,000 unit SUBCUT Q12H Qty: 24 0RF vit-ferrous sulfat-FA 27 mg iron- 0.8 mg tablet PO labetalol 100 mg tablet 100 mg PO BID Qty: 60 4RF RSVPreF3 antigen-AS01E (PF) 120 mcg/0.5 mL suspension for reconstitution 0.5 ml IM ONCE Qty: 1 0RF (DME) breast pump Device See Rx Instructions .Route Qty: 1 0RF Rx Instructions: [employer] - As directed hydrocortisone [Anusol-HC] 2.5 % cream with perineal applicator 1 applic [place] QD-BID PRN (Reason: hemorrhoids) Qty: 30 3RF Follow up/Referrals: ProviderZayda [Primary Care Provider] - Discharge Data Primary Care Provider: Zayda Pimentel
[2024-05-24 09:31] VITALS: BP 120/54; PULSE 75
[2024-05-24] MEDS: LABETALOL 100 MG TABLET PO (09:31)
[2024-05-24 12:04] LABS: Add Manual Diff / Slide Review NO; Basophils Absolute Auto 0 /uL (0-100); Basophils Percent Auto 0.2 % (0-2); Eosinophils Absolute Auto 100 /uL (0-450); Eosinophils Percent Auto 0.5 % (2-4); Hematocrit 31.6 % (36-46); Lymphocytes Absolute Auto 1500 /uL (1100-4500); Lymphocytes Percent Auto 14.7 % (25-40); Mean Corpuscular HGB Conc 34.8 % (30-36); Mean Corpuscular Hemoglobin 33.5 PG (26-34); Mean Corpuscular Volume 96.3 fL (80-100); Monocytes Absolute Auto 900 /uL (0-900); Monocytes Percent Auto 8.9 % (3-14); Neutrophils Absolute Auto 7800 /uL (1500-7000); Neutrophils Percent Auto 75.7 % (50-75); Platelet Count 105 X10^3/uL (150-400); Red Blood Cell Count 3.28 X10^6/uL (4.0-5.2); Red Cell Distribution Width 14.2 % (11.6-14.8); White Blood Cell Count 10.3 X10^3/uL (4.5-11.0)
[2024-05-24] MEDS: ENOXAPARIN 40 MG/0.4 ML SYRINGE SUBCUT (13:40)
--- NOTE | 2024-05-31 20:31 | PM.OBPRVD ---
Events: Gestational Diabetes (on 14U insulin), Induced HTN (on Labetolol) and Labor Induction Labor & Delivery Delivery date: 05/23/24 Intrapartal Events: Prolonged Labor > 20 hours, Prolonged Latent Phase and Prolonged Active Phase Cervical ripening method: per misoprostal protocol (and Cervidil) Induction method: per pitocin protocol Delivery augmentation: rupture of membranes Delivery monitor: external FHT, external uterine and internal uterine Route of delivery: vacuum extraction Indication for instrumentation: maternal exhaustion Episiotomy description: None L&D Laceration Description: Perineal - 2nd Degree Delivery repair: vicryl and chromic Quantitative Blood Loss: 150 Anesthesia Type: Epidural Complications: None Narrative: Patient complete and pushed x 1 hr 36min. Vacuum applied due to maternal exhaustion. With one contraction and 1 pull, the vertex was brought to the perineum. The vertex then delivered in the ANG presentation over an intact perineum with the next push at 1028 am. A loose nuchal cord x 1 was reduced on the perineum. The remainder of the body delivered without difficulty and was placed on mom's abdomen. The cord was double-clamped and cut after it stopped pulsing. Cord bloods were obtained. Pitocin was given in the IVF's. The fundus was massaged to firm. The placenta delivered intact with a 3-V cord at 1050 am. The fundus was massaged to firm. A second degree perineal laceration was repaired in the usual fashion. Hemostasis was achieved. QBL: 150cc. Apgars: 8 at 1 min and 9 at 5 min. . Epidural analgesia. BW: 8# 4.1oz. Mom and stable to recovery. Baby 1: Infant gender: Female Presentation: vertex Position: Left Occiput Anterior Placenta delivery description: Spontaneous Cord Vessel Description: Nuchal Cord, Loose, Reduced and Clamped/Cut (after cord stopped pulsing) score (1 min): 8 score (5 min): 9 weight: 8 lb 4.1 oz Plan for aftercare: Routine care
--- NOTE | 2024-05-31 20:44 | P.DS_ITS ---
Discharge Providers Provider Date of admission: 05/19/24 19:29 Discharge Date: 05/24/24 Primary care physician: Zayda HDZ Provider Consults: 05/19/24 19:39 Consult to Anesthesiology Urgent Comment: Consulting Provider: Anesthesiologist Reason for consultation: Epidural Has provider been notified: No 05/24/24 10:35 Consult to Real Estate Photographer Routine Comment: Discharge provider: Rosalia Ku MD Summary Hospital Course Date Patient Seen: 05/24/24 Time Patient Seen: 10:30 Diagnoses: 37+3 weeks gestation Gestational diabetes A2 Chronic hypertension Cervical ripening with Misoprostol and Cervidil Pitocin induction of labor Cervical ladd bulb placement Artificial rupture of membranes Epidural analgesia Vacuum assisted vaginal delivery Second degree perineal laceration Hospital Course: Patient is a 39-year-old 1 para 1 who presents on the evening of May 19, 2024 for cervical ripening. She received misoprostol overnight. Her cervix was closed/75%/-2 station. She received a total 1 dose of misoprostol. On 05/20 she was nicolas too frequently for repeat cervical ripening. She was placed on low-dose Pitocin with continued until the evening. This was then turned off. She received a dose of Cervidil overnight. On the morning of May 21, 2024 she was getting uncomfortable. Pitocin was continued through out the day and evening. There was minimal cervical change. On the morning of May 22, 2024 she was getting uncomfortable and received an epidural for pain management. A Ladd bulb was placed into the cervix. She was again started on low-dose Pitocin. At 5:19 p.m. she progressed to 5 cm/85%/0 station. At 9:15 p.m. artificial rupture of membranes was attempted but patient was too uncomfortable. The epidural was rebolused. At 2:24 a.m. at on May 23, 2024 artificial rupture membranes was performed with copious clear amniotic fluid. An intrauterine pressure catheter was placed. At 8:45 a.m. in the morning she was complete and 0 station. Pushed for 1 hour and 36 minutes. She had a vacuum assisted vaginal delivery without complication. A second-degree perineal laceration was repaired. Her blood sugars remained stable ranging from 80s to 110s throughout the labor. Her course was unremarkable. She was discharged home on May 24, 2024 to follow-up at 1 week for a blood pressure check. Her blood pressures throughout the labor and course also remained stable. She was discharged to home on Lovenox 40mg/day and Labetolol. Signs/symptoms of preeclampsia and DVT/PE reviewed with the patient. Peripartum Data Infant Delivery Method: Assisted Delivery (vacuum) Laceration Description: Perineal - 2nd Degree Episiotomy description: None Procedures: Cervical ripening with misoprostol and Cervidil Pitocin induction of labor Cervical Ladd bulb placement Artificial rupture Epidural analgesia vacuum assisted vaginal delivery Second-degree perineal laceration repair complications: none 1: Gender: Female Disposition of : home Status at Discharge Cognitive/behavioral status at discharge: oriented Functional status at discharge: independent ambulation Overall status at discharge: patient is progressing back to baseline Time Spent with Patient Time attestation: Total time spent providing and/or coordinating discharge services: Time spent: Less than 30 minutes Objective Labs 05/24/24 11:55 05/19/24 20:58 Exam Narrative Exam Narrative: Gen: Sitting up in bed, NAD Fundus: Firm, U/-1 Ext: 1+ edema, neg Rosalba's Discharge Plan Discharge Plan Patient Disposition: Home Discharge orders & Medications Prescriptions: New acetaminophen 325 mg Tablet 650 mg PO Q6HR PRN (Reason: Pain, Mild (1-3)) Qty: 30 0RF Continued enoxaparin 40 mg/0.4 mL syringe 40 mg SUBCUT DAILY Qty: 12 4RF vit-ferrous sulfat-FA 27 mg iron- 0.8 mg tablet PO labetalol 100 mg tablet 100 mg PO BID Qty: 60 4RF RSVPreF3 antigen-AS01E (PF) 120 mcg/0.5 mL suspension for reconstitution 0.5 ml IM ONCE Qty: 1 0RF (DME) breast pump Device See Rx Instructions .Route Qty: 1 0RF Rx Instructions: [employer] - As directed hydrocortisone [Anusol-HC] 2.5 % cream with perineal applicator 1 applic [place] QD-BID PRN (Reason: hemorrhoids) Qty: 30 3RF Discontinued (DME) Blood Glucose Test Strip See Rx Instructions .ROUTE .MEDSUPPLY Qty: 120 3RF Rx Instructions: Testing blood sugars fasting and 2 hr PP (DME) lancets Misc See Rx Instructions .ROUTE .MEDSUPPLY Qty: 120 3RF Rx Instructions: Testing blood sugars fasting and 2 hr PP (DME) blood-glucose meter [Blood Glucose Monitoring] Kit See Rx Instructions .ROUTE .MEDSUPPLY Qty: 1 0RF Rx Instructions: To use with testing fasting and 2 hr PP blood sugars Humulin N NPH Insulin KwikPen 100 unit/mL (3 mL) insulin pen 10 unit SUBCUT QPM Qty: 15 1RF heparin, porcine (PF) 5,000 unit/0.5 mL syringe 5,000 unit SUBCUT Q12H Qty: 5 1RF heparin (porcine) 5,000 unit/mL syringe 5,000 unit SUBCUT Q12H Qty: 24 0RF No Action cholecalciferol (vitamin D3) [Baby Vitamin D3] 10 mcg/drop (400 unit/drop) drops 10 mcg PO DAILY Qty: 9.2 0RF oxycodone 5 mg tablet 5 mg PO Q4H PRN (Reason: pain) Qty: 14 0RF Follow up/Referrals: Rosalia Ku MD [Physician] - Provider,Zayda HDZ [Primary Care Provider] - (Please make an appointment to see this Thrusday,May. Go to the lab in two days for blood draw for CBC.) Visit Report/Discharge Packet Instructions: DI for Labor and Delivery, Vaginal Stand Alone Forms: Patient Portal/API, Stroke Signs & Symptoms Discharge Data Primary Care Provider: ProviderZayda
== END 2024-05-24 17:35 | disposition home or self-care (01) | DRG 806 ==
PROVIDERS: Family Medicine; Student in an Organized Health Care Education/Training Program; Admitting Provider Obstetrics & Gynecology; Referring Provider Obstetrics & Gynecology; Visit Provider Obstetrics & Gynecology
DX: O24.424 Gestational diabetes mellitus in childbirth, insulin controlled (principal); D68.51 Activated protein C resistance; Z37.0 Single live birth; O99.12 Other diseases of the blood and blood-forming organs and certain disorders involving the immune mechanism complicating childbirth; O13.4 Gestational [pregnancy-induced] hypertension without significant proteinuria, complicating childbirth; O99.824 Streptococcus B carrier state complicating childbirth; O99.214 Obesity complicating childbirth; E66.01 Morbid (severe) obesity due to excess calories; O76 Abnormality in fetal heart rate and rhythm complicating labor and delivery; O63.1 Prolonged second stage (of labor); O70.1 Second degree perineal laceration during delivery; O75.81 Maternal exhaustion complicating labor and delivery; Z3A.37 37 weeks gestation of pregnancy
CPT/HCPCS: 36415; 59050; 59200; 76815; 84450; 84550; 85025; 86850; 86900; 86901; G0379; J0690; J1650; J2405; J2590; J2790; J3010

== ENCOUNTER → 2024-05-27 15:52 | Outpatient (CLI) | payer OTHER, SELFPAY ==
[2024-05-27 17:19] LABS: Add Manual Diff / Slide Review NO; Basophils Absolute Auto 0 /uL (0-100); Basophils Percent Auto 0.2 % (0-2); Eosinophils Absolute Auto 100 /uL (0-450); Eosinophils Percent Auto 1.1 % (2-4); Hemoglobin 10.9 g/dL (12.0-16.0); Lymphocytes Absolute Auto 2000 /uL (1100-4500); Mean Corpuscular HGB Conc 35.1 % (30-36); Mean Corpuscular Hemoglobin 33.3 PG (26-34); Monocytes Absolute Auto 700 /uL (0-900); Monocytes Percent Auto 8.8 % (3-14); Neutrophils Absolute Auto 5400 /uL (1500-7000); Neutrophils Percent Auto 65.9 % (50-75); Platelet Count 181 X10^3/uL (150-400); Red Blood Cell Count 3.26 X10^6/uL (4.0-5.2); Red Cell Distribution Width 13.8 % (11.6-14.8); White Blood Cell Count 8.2 X10^3/uL (4.5-11.0)
== END ==
PROVIDERS: Referring Provider Family Medicine; Visit Provider Family Medicine
DX: D68.2 Hereditary deficiency of other clotting factors (principal)
CPT/HCPCS: 36415; 85025

== ENCOUNTER → 2024-07-07 10:03 | Outpatient (CLI) | payer OTHER, SELFPAY ==
[2024-07-07 11:49] LABS: Glucose Fasting 93 mg/dL (70-100)
[2024-07-07 12:24] LABS: Glucose 1 Hour 151 mg/dL (70-170)
[2024-07-07 12:28] LABS: Glucose Tol Interpretation INTERPRETATION
[2024-07-07 13:18] LABS: Glucose 2 Hour 87 mg/dL (70-140)
== END ==
PROVIDERS: Referring Provider Obstetrics & Gynecology; Visit Provider Obstetrics & Gynecology
DX: O24.419 Gestational diabetes mellitus in pregnancy, unspecified control (principal)
CPT/HCPCS: 36415; 82951; 82952

== ENCOUNTER 2024-11-05 13:14 | Emergency (ER) | payer OTHER, SELFPAY ==
[2024-11-05 13:22] VITALS: BP 175/70; PULSE 86; RESP 16; TEMP 37; O2SAT 99; BMI 36.3
--- NOTE | 2024-11-05 13:40 | EKG_ITS ---
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
--- NOTE | 2024-11-05 13:44 | DI.RAD.S_ITS ---
PROCEDURE: XR CHEST 2V INDICATIONS: cough/ pain TECHNIQUE: 2 views of the chest were acquired. COMPARISON: None. FINDINGS: Surgical changes and devices: None. Lungs and pleura: Lungs are clear. No pleural effusions or pneumothorax. Mediastinum: Mediastinal contours are normal. Heart size is normal. Bones and chest wall: No suspicious bony abnormalities. Soft tissues appear unremarkable. IMPRESSION: No acute cardiopulmonary abnormality is seen. Dictated by: Isaias Robbins M.D. on 11/05/2024 at 14:42 Approved by: Isaias Robbins M.D. on 11/05/2024 at 14:42
[2024-11-05 14:03] LABS: Add Manual Diff / Slide Review NO; Basophils Absolute Auto 0 /uL (0-100); Basophils Percent Auto 0.5 % (0-2); Eosinophils Absolute Auto 0 /uL (0-450); Eosinophils Percent Auto 0.6 % (2-4); Hematocrit 39.3 % (36-46); Hemoglobin 13.5 g/dL (12.0-16.0); Lymphocytes Absolute Auto 2100 /uL (1100-4500); Mean Corpuscular HGB Conc 34.3 % (30-36); Mean Corpuscular Hemoglobin 31.5 PG (26-34); Mean Corpuscular Volume 91.9 fL (80-100); Monocytes Absolute Auto 500 /uL (0-900); Monocytes Percent Auto 6.4 % (3-14); Neutrophils Absolute Auto 4500 /uL (1500-7000); Neutrophils Percent Auto 62.5 % (50-75); Platelet Count 204 X10^3/uL (150-400); Prothrombin Time 10.8 SECONDS (9.4-12.5); Red Blood Cell Count 4.28 X10^6/uL (4.0-5.2); Red Cell Distribution Width 12.8 % (11.6-14.8); White Blood Cell Count 7.1 X10^3/uL (4.5-11.0)
[2024-11-05 14:05] LABS: PTT Partial Thromboplastin Tim 30 SECONDS (25.1-36.5)
[2024-11-05 14:08] LABS: Alanine Aminotransferase 29 IU/L (<35); Albumin 4.3 g/dL (3.5-5.0); Albumin Globulin Ratio 1.5 (1.0-2.8); Alkaline Phosphatase 69 U/L (38-126); Aspartate Aminotransferase 28 IU/L (14-36); BUN Creatinine Ratio 19.5 (6-22); Bilirubin Total 0.9 mg/dL (0.2-1.3); Blood Urea Nitrogen 16 mg/dL (7-17); Calcium 9.5 mg/dL (8.4-10.2); Carbon Dioxide 30 mmol/L (22-32); Chloride 102 mmol/L (98-107); Creatine Kinase 71 U/L (30-135); Estimated Glomerular Filt Rate > 60 mL/min (>60); Globulin 2.9 g/dL (1.7-4.1); Glucose 105 mg/dL (70-100); HEMOLYSIS 15 (0-50); Lipase 107 U/L (23-300); Magnesium 1.7 mg/dL (1.6-2.3); Sodium 137 mmol/L (137-145); Total Protein 7.2 g/dL (6.3-8.2)
--- NOTE | 2024-11-05 14:11 | ED_ITS ---
HPI - Chest Pain <Jenelle Reina PA-C - Last Filed: 11/05/24 15:34> General Chief Complaint: Abdominal Pain Stated Complaint: abd pain Time Seen by Provider: 11/05/24 13:47 Source: patient Mode of arrival: Ambulatory History of Present Illness HPI narrative: Ms. Aldana is a pleasant 39-year-old female with a past medical history of factor 5 Leiden with prior left lower extremity resolved DVTs now on daily baby aspirin, gestational hypertension, gestational diabetes, currently 5 months and who presents to the emergency department for left- sided rib pain x 8 days. Patient states last Saturday she developed pain in her left ribcage worse with coughing, sneezing, movement, deep breath and was seen at urgent care and diagnosed with costochondritis. Patient states she has been using lidocaine patch, Tylenol without relief of symptoms. 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 States that she has had a productive cough and runny nose over the last week. At the end of September, she was treated with a Z- Jluis for pneumonia and reports feeling better after. She denies chest pain, shortness of breath, nausea, vomiting, diarrhea, dysuria, breast pain or redness, fevers, chills, sore throat. She does report chronic left lower extremity swelling ever since having blood clots in the past. Related Data Home Medications Medication Instructions Recorded Confirmed vitamin-ferrous sulfate tab PO 10/28/23 04/29/24 27 mg iron-folic acid 0.8 mg tablet Previous Rx's Medication Instructions Recorded enoxaparin 40 mg/0.4 mL 40 mg (0.4 mL) SUBCUT DAILY #12 mL 02/03/24 subcutaneous syringe labetalol 100 mg tablet 100 mg PO BID #60 tabs 02/06/24 RSVPreF3 antigen-AS01E 0.5 ml IM ONCE #1 ea 04/15/24 adjuvant(PF) 120 mcg/0.5 mL IM suspension, kit breast pump #1 ea 04/15/24 hydrocortisone 2.5 % topical cream 1 applic IL QD-BID PRN hemorrhoids 05/13/24 with perineal applicator #30 grams (Anusol-HC) acetaminophen 325 mg tablet 650 mg (2 x 325 mg) PO Q6HR PRN 05/24/24 Pain, Mild (1-3) #30 tabs cholecalciferol (vitamin D3) 10 10 mcg PO DAILY #9.2 mL 05/27/24 mcg/drop (400 unit/drop) oral drops (Baby Vitamin D3) Allergies Allergy/AdvReac Type Severity Reaction Status Date / Time ampicillin Allergy Intermediate Rash Verified 07/03/24 09:21 tuberculin,PPD,multi-puncture AdvReac Intermediate Do Not Give Verified 07/03/24 09:21 Review of Systems <Jenelle Reina PA-C - Last Filed: 11/05/24 15:34> Review of Systems ROS Unobtainable: All systems reviewed & are unremarkable except as noted in HPI and below Patient History <Jenelle Reina PA-C - Last Filed: 11/05/24 15:34> Medical History Ganglion cyst of foot (~2010) Kidney cysts (~03/2022) Psoriasis Obesity LTBI (latent tuberculosis infection) Hyperhidrosis Hx of venous thromboembolic disease Edema of left lower leg Eczema Dysuria Congenital deformity of foot Surgical History History of skin surgery [place] teeth extracted H/O foot surgery Family History Mother Ovarian cancer Father Hypertension Peripheral vascular disease Grandmother Bladder cancer Grandfather No problems noted. Grandmother Cholecystitis Grandfather COPD (chronic obstructive pulmonary disease) Stroke Heavy smoker Brother Psoriasis Family/Other History of recurrent miscarriages Second trimester Social History marital status: number of children: 0 household members: none lives independently: Yes caregiver/support person: No housing: condominium pets and animals: Yes (1 cat, aware of toxo precautions) education level: college occupational status: employed current occupational exposures/hazards: Yes special shakira needs: No travel history: recent seatbelt use: always helmet use: No water heater temp set < 120 deg: Yes working smoke detector in home: Yes fire extinguisher in home: Yes carbon monox detector in home: Yes firearms in home: No do you feel safe at home: Yes Smoking Status: Never smoker second hand exposure: No alcohol intake: former substance use type: does not use during the past year weight has: remained stable well-balanced diet: daily or most days daily servings fruits/ve-4 caffeine: Yes (1-2 cups coffee or black tea/day) Type(s) of exercise: aerobic and weight lifting frequency: 1-2 times per week Smoking Status: Never smoker alcohol intake frequency: other Exam <Jenelle Reina PA-C - Last Filed: 11/05/24 15:34> Narrative Exam Narrative: GENERAL: 39 year old patient appears stated age. Well-developed patient, in no acute distress. HEAD: Atraumatic. Normocephalic. EYES: Extraocular motions intact. No scleral icterus. No injection or drainage. ENT: Nose without bleeding, purulent drainage. Throat without erythema, tonsillar hypertrophy or exudate. Airway patent. NECK: Trachea midline. Cervical ROM intact. CARDIOVASCULAR: Regular rate and rhythm. Subjective pain under left breast, no skin changes. RESPIRATORY: ?Nonlabored respirations. ?Speaking in clear, full sentences. ?Breath sounds equal bilaterally. No wheezes. Faint expiratory course sounds BL lower lobes. ? GASTROINTESTINAL: Abdomen soft, non-tender, nondistended. Normal bowel sounds. EXTREMITIES: LLE larger than right, pt states baseline. No calf tenderness. BACK: Nontender without deformity NEURO: AOx3. ?Clear speech. ?Moves all 4 extremities appropriately. SKIN: No rash or erythema of visible areas Initial Vital Signs Initial Vital Signs: Vital Signs Temperature 98.6 F 11/05/24 13:22 Pulse Rate 86 11/05/24 13:22 Respiratory Rate 16 11/05/24 13:22 Blood Pressure 175/70 H 11/05/24 13:22 Pulse Oximetry 99 11/05/24 13:22 Oxygen Delivery Method Room Air 11/05/24 13:22 <Larisa Willis MD - Last Filed: 11/07/24 07:28> Initial Vital Signs Initial Vital Signs: Vital Signs Temperature 98.6 F 11/05/24 13:22 Pulse Rate 86 11/05/24 13:22 Respiratory Rate 16 11/05/24 13:22 Blood Pressure 175/70 H 11/05/24 13:22 Pulse Oximetry 99 11/05/24 13:22 Oxygen Delivery Method Room Air 11/05/24 13:22 Scores <Jenelle Reina PA-C - Last Filed: 11/05/24 15:34> PERC Score Age greater than or equal to 50 years: No Heart rate greater than or equal to 100 bpm: No Room Air O2 Sat less than 95%: No Unilateral leg swelling: Yes Recent trauma or surgery: No Hemoptysis: No Prior PE or DVT: Yes Hormone Use: No Total PERC Score: 2 <Larisa Willis MD - Last Filed: 11/07/24 07:28> PERC Score Total PERC Score: 2 Course <Jenelle Reina PA-C - Last Filed: 11/05/24 15:34> Orders Ordered: Discontinued Medications Acetaminophen (Acetaminophen 325 Mg Tablet) 975 mg PO NOW ONE Stop: 11/05/24 14:35 Last Admin: 11/05/24 14:55 Dose: 975 mg Documented By: MAVERICK Aspirin (Aspirin 81 Mg Chew Tab) 324 mg PO NOW ONE Stop: 11/05/24 13:41 Vital Signs Vital signs: Vital Signs - 8 hr 11/05/24 13:22 Temperature 98.6 F Pulse Rate 86 Respiratory Rate 16 Blood Pressure 175/70 H Pulse Oximetry 99 Oxygen Delivery Method Room Air <Larisa Willis MD - Last Filed: 11/07/24 07:28> Orders Ordered: Discontinued Medications Acetaminophen (Acetaminophen 325 Mg Tablet) 975 mg PO NOW ONE Stop: 11/05/24 14:35 Last Admin: 11/05/24 14:55 Dose: 975 mg Documented By: MAVERICK Aspirin (Aspirin 81 Mg Chew Tab) 324 mg PO NOW ONE Stop: 11/05/24 13:41 Vital Signs Vital signs: Vital Signs - 8 hr 11/05/24 13:22 Temperature 98.6 F Pulse Rate 86 Respiratory Rate 16 Blood Pressure 175/70 H Pulse Oximetry 99 Oxygen Delivery Method Room Air MDM - Chest Pain <Jenelle Reina PA-C - Last Filed: 11/05/24 15:34> Lab Data 11/05/24 13:45 11/05/24 13:45 Labs: Lab Results 11/05/24 Range/Units 13:45 WBC 7.1 (4.5-11.0) X10^3/uL RBC 4.28 (4.0-5.2) X10^6/uL Hgb 13.5 (12.0-16.0) g/dL Hct 39.3 (36-46) % MCV 91.9 (80-100) fL MCH 31.5 (26-34) PG MCHC 34.3 (30-36) % RDW 12.8 (11.6-14.8) % Plt Count 204 (150-400) X10^3/uL Neut % (Auto) 62.5 (50-75) % Lymph % (Auto) 30.0 (25-40) % [place] % (Auto) 6.4 (3-14) % Eos % (Auto) 0.6 L (2-4) % Baso % (Auto) 0.5 (0-2) % Neut # (Auto) 4500 (2516-5928) /uL Lymph # (Auto) 2100 (4589-2782) /uL [place] # (Auto) 500 (0-900) /uL Eos # (Auto) 0 (0-450) /uL Baso # (Auto) 0 (0-100) /uL PT 10.8 (9.4-12.5) SECONDS INR 1.0 (0.9-1.3) APTT 30 (25.1-36.5) SECONDS D-Dimer 517 H (<500) ng/ml Sodium 137 (137-145) mmol/L Potassium 4.0 (3.4-5.1) mmol/L Chloride 102 (98-107) mmol/L Carbon Dioxide 30 (22-32) mmol/L BUN 16 (7-17) mg/dL Creatinine 0.82 (0.52-1.04) mg/dL Estimated GFR > 60 (>60) mL/min BUN/Creatinine Ratio 19.5 (6-22) Glucose 105 H (70-100) mg/dL Calcium 9.5 (8.4-10.2) mg/dL Magnesium 1.7 (1.6-2.3) mg/dL Total Bilirubin 0.9 (0.2-1.3) mg/dL AST 28 (14-36) IU/L ALT 29 (<35) IU/L Alkaline Phosphatase 69 (38-126) U/L Total Creatine Kinase 71 (30-135) U/L Troponin I < 0.012 (0.01-0.034) ng/mL NT-Pro-B Natriuret Pep 96 (<125) pg/mL Total Protein 7.2 (6.3-8.2) g/dL Albumin 4.3 (3.5-5.0) g/dL Globulin 2.9 (1.7-4.1) g/dL Albumin/Globulin Ratio 1.5 (1.0-2.8) Lipase 107 (23-300) U/L Point of Care Testing Test Results Negative MDM Narrative Medical decision making narrative: 39-year-old female with a past medical history of factor 5 Leiden, currently 5 months presents to the emergency department for left lower ribcage pain x8 days. Differential diagnosis includes but is not limited to PE, costochondritis, pneumonia, mastitis, muscle strain, etc. On exam patient is in no acute distress, nontoxic-appearing, 99% O2 on room air and not tachycardic or febrile. She is subjective pain in the area just below the left breast along the anterior left ribcage. This area is not tender to palpation but it is painful with movement and deep breath. She does have left lower extremity swelling greater than the right but states that this is baseline for her. We will obtain cardiac workup including D-dimer and chest x-ray. Labs reveal slightly elevated D-dimer of 517, we will proceed with CTA chest after discussion with the patient. CBC reveals normal WBC count 7.1, no anemia, CMP shows normal renal function, normal electrolytes. Lipase normal. Troponin and BNP both negative. Chest x-ray and chest CTA both negative. Patient's symptoms likely related to musculoskeletal left ribcage pain/costochondritis. Recommended anti- inflammatories and encouraged deep breathing to prevent development of pneumonia. Discussed discharge instructions with patient, ER return precautions, and follow up with PCP. Vital signs improved, blood pressure normalized during ED stay. She verbalized understanding of all information and is stable for discharge. <Larisa Willis MD - Last Filed: 11/07/24 07:28> Lab Data Labs: Lab Results 11/05/24 Range/Units 13:45 WBC 7.1 (4.5-11.0) X10^3/uL RBC 4.28 (4.0-5.2) X10^6/uL Hgb 13.5 (12.0-16.0) g/dL Hct 39.3 (36-46) % MCV 91.9 (80-100) fL MCH 31.5 (26-34) PG MCHC 34.3 (30-36) % RDW 12.8 (11.6-14.8) % Plt Count 204 (150-400) X10^3/uL Neut % (Auto) 62.5 (50-75) % Lymph % (Auto) 30.0 (25-40) % [place] % (Auto) 6.4 (3-14) % Eos % (Auto) 0.6 L (2-4) % Baso % (Auto) 0.5 (0-2) % Neut # (Auto) 4500 (5953-4067) /uL Lymph # (Auto) 2100 (4381-0472) /uL [place] # (Auto) 500 (0-900) /uL Eos # (Auto) 0 (0-450) /uL Baso # (Auto) 0 (0-100) /uL PT 10.8 (9.4-12.5) SECONDS INR 1.0 (0.9-1.3) APTT 30 (25.1-36.5) SECONDS D-Dimer 517 H (<500) ng/ml Sodium 137 (137-145) mmol/L Potassium 4.0 (3.4-5.1) mmol/L Chloride 102 (98-107) mmol/L Carbon Dioxide 30 (22-32) mmol/L BUN 16 (7-17) mg/dL Creatinine 0.82 (0.52-1.04) mg/dL Estimated GFR > 60 (>60) mL/min BUN/Creatinine Ratio 19.5 (6-22) Glucose 105 H (70-100) mg/dL Calcium 9.5 (8.4-10.2) mg/dL Magnesium 1.7 (1.6-2.3) mg/dL Total Bilirubin 0.9 (0.2-1.3) mg/dL AST 28 (14-36) IU/L ALT 29 (<35) IU/L Alkaline Phosphatase 69 (38-126) U/L Total Creatine Kinase 71 (30-135) U/L Troponin I < 0.012 (0.01-0.034) ng/mL NT-Pro-B Natriuret Pep 96 (<125) pg/mL Total Protein 7.2 (6.3-8.2) g/dL Albumin 4.3 (3.5-5.0) g/dL Globulin 2.9 (1.7-4.1) g/dL Albumin/Globulin Ratio 1.5 (1.0-2.8) Lipase 107 (23-300) U/L Point of Care Testing Test Results Negative Discharge Plan Departure Patient Disposition: Home Clinical Impression: Acute costochondritis Cough Qualifiers: Cough type: acute Qualified Code(s): R05.1 - Acute cough Instructions: DI for Costochondritis Activity Restrictions/Additional Instructions: Today we completed a workup for pain in the left ribcage. Your lab work and imaging was very reassuring. You do not have pneumonia or a blood clot in your lung. The pain in your left ribcage is likely from the muscles and the cartilage. Taking anti-inflammatory pain medications will help with this in addition to rest. Please increase hydration to help with any mucus. Please take Ibuprofen (Motrin/Advil) or Acetaminophen (Tylenol) for pain. These are available over the counter. You may take Ibuprofen 600 mg every 8 hours with food for pain. You may also take Acetaminophen 650 mg every 4-6 hours for pain. Do not exceed 3000 mg of Tylenol a day as this can cause liver damage. Do not drink alcohol with either of these medications. Please follow up with your primary care doctor within the next 2-3 days for ER follow-up. (If you do not have a PCP you can call [phone]. ?to schedule an appointment with an [facility] Primary Care Provider) IF YOU DEVELOP ANY NEW OR WORSENING SYMPTOMS, RETURN TO THE ER! Please read the attached instructions, they highlight more specific treatments and interventions for you at home. Thank you for letting me participate in your care, Jenelle Reina PA-C Prescriptions: No Action enoxaparin 40 mg/0.4 mL syringe 40 mg SUBCUT DAILY Qty: 12 4RF cholecalciferol (vitamin D3) [Baby Vitamin D3] 10 mcg/drop (400 unit/drop) drops 10 mcg PO DAILY Qty: 9.2 0RF vit-ferrous sulfat-FA 27 mg iron- 0.8 mg tablet PO labetalol 100 mg tablet 100 mg PO BID Qty: 60 4RF RSVPreF3 antigen-AS01E (PF) 120 mcg/0.5 mL suspension for reconstitution 0.5 ml IM ONCE Qty: 1 0RF (DME) breast pump Device See Rx Instructions .Route Qty: 1 0RF Rx Instructions: [employer] - As directed hydrocortisone [Anusol-HC] 2.5 % cream with perineal applicator 1 applic IL QD-BID PRN (Reason: hemorrhoids) Qty: 30 3RF acetaminophen 325 mg Tablet 650 mg PO Q6HR PRN (Reason: Pain, Mild (1-3)) Qty: 30 0RF Referrals: Provider,Zayda HDZ [Primary Care Provider] - Stand Alone Forms: Patient Portal/API/Survey, Work Release Note ED Sign-out <Larisa Willis MD - Last Filed: 11/07/24 07:28> Cosign ED Attending Cosignature Attestation: I was immediately available in the department for consultation throughout this patient's visit. Larisa Willis MD
[2024-11-05 14:20] LABS: NT-proBNP (BNP-Adult 18+) 96 pg/mL (<125); Troponin I < 0.012 ng/mL (0.01-0.034)
[2024-11-05 14:21] LABS: D Dimer 517 ng/ml (<500)
--- NOTE | 2024-11-05 14:34 | DI.CT.S_ITS ---
PROCEDURE: CT ANGIO CHEST PE PROTOCOL INDICATIONS: concern for PE; left sided pleuritic pain; cough TECHNIQUE: After the administration of intravenous contrast, 2 mm thick sections acquired from the pulmonary apices to the posterior costophrenic angles. 3-dimensional maximum intensity projection (MIP) coronal and sagittal reformats were then acquired through the thorax. For radiation dose reduction, the following was used: automated exposure control, adjustment of mA and/or kV according to patient size. COMPARISON: None. FINDINGS: Image quality: Diagnostic. Pulmonary arteries: Pulmonary arteries are normal in size, and demonstrate no intraluminal filling defects to suggest central pulmonary embolism. Lower Neck: No enlarged lymph nodes. Thyroid: No thyroid nodules which require sonographic follow up, per consensus guidelines. Axillae: No enlarged lymph nodes. Chest Wall: Unremarkable. Bones: Unremarkable. Lungs and Pleura: No pneumothorax or pleural effusions. Atelectasis in the lung bases. No suspicious nodules. Heart: Heart size is normal. No pericardial effusion. Thoracic Vessels: No aortic aneurysm. Mediastinum and Maryann: No enlarged lymph nodes. Esophagus: No wall thickening. No hiatal hernia. Upper Abdomen: Visualized upper abdomen solid organs and bowel loops appear normal. IMPRESSION: No pulmonary embolus. No acute cardiopulmonary process. Dictated by: Isaias Robbins M.D. on 11/05/2024 at 15:01 Approved by: Isaias Robbins M.D. on 11/05/2024 at 15:03
[2024-11-05] MEDS: ACETAMINOPHEN 325 MG TABLET 975 MG PO (14:55)
[2024-11-05 15:40] VITALS: BP 123/83; PULSE 66; RESP 18; O2SAT 99
== END 2024-11-05 15:42 | disposition home or self-care (01) ==
PROVIDERS: Emergency Provider Physician Assistant
DX: M94.0 Chondrocostal junction syndrome [Tietze] (principal); R05.1 Acute cough; I49.8 Other specified cardiac arrhythmias
CPT/HCPCS: 36415; 71046; 71275; 80053; 81025; 82550; 83690; 83735; 83880; 84484; 85025; 85379; 85610; 85730; 93005; 93010; 99283; 99284; Q9967